=== PATIENT | male | born 1985 | race Caucasian/White ===

== ENCOUNTER 2019-04-19 14:30 | Emergency (ER) | payer MEDICAID ==
[~2019-04-19] VITALS: Ht 182.9 cm; Wt 68.2 kg
[2019-04-19 16:04] LABS: URINE AMPHETAMINE SCREEN NEGATIVE (Neg); URINE BARBITUATE SCREEN NEGATIVE (Neg); URINE BENZODIAZEPINES SCREEN NEGATIVE (Neg); URINE CANNABINOID SCREEN POSITIVE (Neg); URINE COCAINE SCREEN NEGATIVE (Neg); URINE METHADONE SCREEN NEGATIVE (Neg); URINE OPIATE SCREEN NEGATIVE (Neg); URINE PHENCYCLIDINE SCREEN NEGATIVE (Neg)
[2019-04-19 16:19] LABS: BASOPHILS % (AUTO) 0.2 % (0-1); EOSINOPHILS % (AUTO) 0 % (0-6); HEMATOCRIT 46.2 % (42.0-52.0); HEMOGLOBIN 15.7 g/dl (14.0-17.9); LYMPHOCYTES % (AUTO) 12.3 % (21-51); MEAN CORPUSCULAR HGB CONC 33.9 g/dL (33.0-36.5); MEAN CORPUSCULAR VOLUME 94.4 FL (78-98); MEAN PLATELET VOLUME 10.1 FL (7.4-10.4); MONOCYTES # (AUTO) 1.1 X10'3 (0-0.9); NEUTROPHILS # (AUTO) 13.1 X10'3 (1.8-7.7); NEUTROPHILS % (AUTO) 80.5 % (42-75); PLATELET COUNT 189 X10'3 (140-440); RED BLOOD COUNT 4.89 X10'6 (4.70-6.10); RED CELL DISTRIBUTION WIDTH 14.1 % (11.5-14.5); WHITE BLOOD COUNT 16.3 X10'3 (4.5-11.0)
[2019-04-19 16:31] LABS: ALANINE AMINOTRANSFERASE 24 U/L (12-78); ALBUMIN 4.3 G/DL (3.4-5.0); ALBUMIN/GLOBULIN RATIO 1.5 (1.1-1.5); ALKALINE PHOSPHATASE 35 IU/L (46-116); ANION GAP 9 (8-16); ASPARTATE AMINO TRANSFERASE 22 U/L (10-37); BILIRUBIN,TOTAL 0.8 MG/DL (0.1-1.0); BLOOD UREA NITROGEN 20 MG/DL (7-18); CALCIUM 9.2 MG/DL (8.5-10.1); CHLORIDE 102 MMOL/L (99-107); ETHANOL < 0.010 GM/DL (0.0-0.010); GLUCOSE 74 MG/DL (70-104); POTASSIUM 4.1 MMOL/L (3.5-5.1); SODIUM 139 MMOL/L (135-145); TOTAL CARBON DIOXIDE 27.8 MMOL/L (24-32); TOTAL PROTEIN 7.2 G/DL (6.4-8.2); eGFR 85 ML/MIN
[2019-04-19 16:55] LABS: CLARITY,URINE SLIGHTLY CLOUDY (Clear); GLUCOSE, URINE NEGATIVE (Neg); KETONES,URINE >=80 mg/dl (Neg); LEUKOCYTE ESTERASE ,URINE NEGATIVE (Neg); NITRITES, URINE NEGATIVE (Neg); OCCULT BLOOD,URINE TRACE-INTACT (Neg); PROTEIN,URINE 30 mg/dl (Neg)
[2019-04-19 16:58] LABS: COLOR,URINE DARK YELLOW (Yellow); UA COLLECTION TYPE CLN CATCH MIDSTREAM
[2019-04-19 17:01] LABS: AMORPHOUS URATES 1+; BACTERIA,URINE FEW /HPF (Neg); COARSE GRANULAR CAST 0-3 /LPF (NEGATIVE); MUCUS STRANDS MANY /LPF (Neg); RBC,URINE 0-2 /HPF (0-2); SQUAMOUS EPITHELIAL CELL,UR FEW /LPF (FEW); WBC,URINE 0-4 /HPF (0-4)
--- NOTE | 2019-04-19 17:12 | NUR ---
Pt currently resting with in bed with mother sitting at bedside. Pt states he is not suicidal or homicidal and denies AH or VH. Pt updated on plan of care and denies needs at present time.
--- NOTE | 2019-04-19 18:33 | NUR ---
Assumed care of patient, pt. sitting up in bed eating dinner at this time. Appears calm and cooperative, mother is at bedside.
--- NOTE | 2019-04-19 18:34 | NUR ---
Note justa in EDM - 04/19/19 at 1854 by BLAS Assumed care of patient, pt. sitting up in bed eating dinner at this time. He appears calm and cooperative.
--- NOTE | 2019-04-19 19:30 | NUR ---
Completed 1:1 at bedside with patient's mother present per his consent, pt. remains calm and cooperative with assessment. He reports S/I over the past few days with no plan. However, per pt's mother, he has threatened suicide attempts in the past with a plan to cut himself with a knife or inhale car exhast, pt. states, "I only want to get my kids back." He reports that his kids are currently with his fiancee staying with her family. Pt. is currently denying any S/I or any A/V/SWEENEY, however he does make paranoid delusional statements. He reports feeling like others want to "Frame him for the Hernán[place] Fire," although he is aware that he did not start it. He also feels like others are trying to poision him (with food and medications) and because of this he is non-medicaton compliant. Pt's thought process is circumstantial with flight of ideas at times, however he is redirectible. He reports that he is currently homeless and would like help getting his life back on track. Pt. is also concerned regarding the confidentiality of his medical record, he states, I dont want my kids to see it. This entry writer assured him that all information will remain confidential, however it will be documented in order to assist in effectively treating him, pt. reported understanding.
--- NOTE | 2019-04-19 20:38 | NUR ---
Pt. reuesting to go outside and smoke at this time, offered to obtain order for nicotine patch or lozenge, pt. refuses. Also refuses any anxiolytic, will continue to monitor.
[2019-04-19] MEDS ORDERED: hydrOXYzine 25 MG tablet PO ONE (21:30)
--- NOTE | 2019-04-19 22:01 | NUR ---
Obtained one-tme order for Atrax r/t pt. report of increasing anxiety and insomnia r/t environmental overstimulation. Also, obtained pictures and applied ABT ointment per order from Dr. Rabago of abraisions present on pt. bilateral knees, wrists, and top of feet. Pt. states, "It happended when I got drug by the police, I was not in my right mind." Pt. reports content, will continue to monitor.
--- NOTE | 2019-04-19 22:30 | NUR ---
Pt. appears to be resting comfortably at this time, laying in bed with eyes closed, rr even and unlabored. Will continue to monitor.
--- NOTE | 2019-04-20 00:35 | NUR ---
Pt. continues to sleep at this time, laying on back with HOB elevated, rr even and unlabored. Will continue to monitor.
[2019-04-20] MEDS ORDERED: NO HOME MEDS (00:46)
--- NOTE | 2019-04-20 02:33 | NUR ---
Pt. sleeping laying on his rt. side at this time, he will occassionally awake and make body adjustments, and then returns back to sleep, will continue to monitor.
--- NOTE | 2019-04-20 04:33 | NUR ---
Pt. laying on his back with his eyes closed at this time after adjusting his bed for comfort, rr even and unlabored.
--- NOTE | 2019-04-20 05:17 | NUR ---
Pt. awakened and c/o a headache r/t feeling hungry and cravings to smoke. Pt. reports he smokes 1 pack a day. Snack provided and obtained order for Nicotine Patch.
[2019-04-20] MEDS ORDERED: nicotine 21mg patch - 24 hr TD ONE (05:20)
--- NOTE | 2019-04-20 05:46 | NUR ---
Pt. visibly anxious, pacing, repeatedly asking staff when [facility] will arrive to talk to him. Pt. states, "I just feel caged in." He refuses the need for an anxyolitic at this time, and is able to be redirected back to his bed. Will continue to monitor.
--- NOTE | 2019-04-20 06:27 | NUR ---
Pt. refusing to put clothes on, states, "I want to go to a window to see my son." Staff attempted to re-orient to reality, however pt. continued to refuse to put clothes on and lay flat in bed, he started reciting the lord's prayer. Assisted by two staff members to put clothes on while security stood by. Will continue to monitor.
[2019-04-20] MEDS ORDERED: LORazepam 2 mg/ml vial IM ONE ×2 (06:30→06:50)
--- NOTE | 2019-04-20 06:30 | NUR ---
Patient refusing to get dressed, keeps trying to leave unit. Patient keeps reciting the Lord's Sebastian out Loud and is loudy trying to talk to neighbor. Given 2mg of Ativan.
--- NOTE | 2019-04-20 06:32 | NUR ---
ELOPEMENT BAND PLACED ON PTS LEFT WRIST.
--- NOTE | 2019-04-20 06:51 | NUR ---
Gave 2mg At[address] per Dr Calvo instead of 1mg
[2019-04-20] MEDS ORDERED: diphenhydrAMINE 50 mg/ml inj IM ONE (07:00)
[2019-04-20] MEDS ORDERED: haloperidol lactate 5mg/ml inj IM ONE (07:00)
--- NOTE | 2019-04-20 07:00 | NUR ---
Still trying to leave unit and loudly talking to neighbor. Dr Calvo ordered 50mg benadryl IM and Haldol 10mg IM.
--- NOTE | 2019-04-20 07:06 | NUR ---
PT CONTINUES TO TAKE OFF HIS SCRUBS, PT EDUCATED ON UNIT POLICIES, PT REFUSES TO WEAR SCRUBS. SECURITY CALLED. EDNV ORDERED MEDS, MEDS ADMINISTERED. PT IS HYPER ANABAPTISM AND CONTINUES TO REPEAT THE SAME PRAYER LOUDLY. PT STILL REFUSES TO WEAR SCRUBS. SECURITY AND NURSE AT BEDSIDE. PT KEEPS CALLING OUT "GAURAV, I LOVE YOU BROTHER" TO THE BED NEXT TO HIM (NO PT ON UNIT WITH THAT NAME). WILL CONTINES TO REDIRECT AND MONITOR THE PT.
--- NOTE | 2019-04-20 07:15 | NUR ---
Dr Calvo said if patient is still trying to leave the unit in 15minutes to try Geodon IM.
--- NOTE | 2019-04-20 07:17 | NUR ---
PT HAS MADE HIS 4TH ATTEMPT TO LEAVE THE UNIT, SECURITY PLACED PT BACK IN BED. REQUEST FOR SOFT RESTRAINTS DENIED BY EDMD, EDMD STATES "WAIT 10-15 MINUTES FOR THE MEDS, IF THAT DOESN'T WORK WE CAN GIVE GEODON". SECURITY AT BEDSIDE, CN AWARE. WILL CONTINUE TO MONITOR.
--- NOTE | 2019-04-20 07:22 | NUR ---
Patient is no longer trying to leave unit is reciting prayers out loud or tyring to talk to his neighbor. Patient is lying down in bed and appears to be asleep.
--- NOTE | 2019-04-20 08:00 | NUR ---
Patient is sleeping
--- NOTE | 2019-04-20 09:00 | NUR ---
Patient is sleeping
--- NOTE | 2019-04-20 18:38 | NUR ---
Pt's mom at bedside pt up and down coming to nurses station getting water from sink.
[2019-04-20] MEDS ORDERED: OLANZapine 2.5MG tablet PO ONE (20:00)
[2019-04-20] MEDS ORDERED: OLANZapine **IM** 10 mg inj. IM ONE (20:05)
--- NOTE | 2019-04-20 20:41 | NUR ---
Pt is currently quietly resting in bed in 4 point restraints applied by security. Pt behavior began to escalate around 1944. Pt attempted to leave unit rediricted by staff. Security called for standby. Pt offered PO Zyprexa he refused. Order for IM Zyprexa obtained. While this RN in med room preparing injection per security pt lunged at security and tried to strike them. Security applied restraints. Pt given IM Zyprexa at 20:20.
--- NOTE | 2019-04-20 22:59 | NUR ---
2109 Restraints removed. Pt slept for about an hour up to nurses station requesting to see his Dr. Pt made several trips to Nurses station. Returned to bed removed his scrubs is lying in bed covered by a sheet at this time.
--- NOTE | 2019-04-21 00:16 | NUR ---
Pt sleeping resp even and unlabored.
--- NOTE | 2019-04-21 01:50 | NUR ---
Pt sleeping resp even and unlabored.
--- NOTE | 2019-04-21 02:52 | NUR ---
Pt up pacing on unit.
--- NOTE | 2019-04-21 04:26 | NUR ---
Pt has been in bed asleep
[2019-04-21] MEDS ORDERED: LORazepam 1 MG tablet PO PRN (05:30)
--- NOTE | 2019-04-21 06:30 | NUR ---
Pt awake, pacing.
--- NOTE | 2019-04-21 07:00 | NUR ---
Pt requested a Bible, provided him with a [place] New Testament Book of Psalms which was the only one we could find in the hospital. Pt insistent that he needs "A Holy Bible" and he thought that we had to provide him with one.
--- NOTE | 2019-04-21 07:15 | NUR ---
Pt removed his shirt, instructed to put it back on. Pt declined, he laid down in the bed, covered himself with a sheet and removed his pants as well.
--- NOTE | 2019-04-21 08:15 | NUR ---
Pt was told that if he wanted to eat breakfast, he would have to put his clothes back on. Pt put his scrubs back on .
--- NOTE | 2019-04-21 10:15 | NUR ---
Pt received a phone call from his deya.
--- NOTE | 2019-04-21 11:24 | NUR ---
Pt is c/o floaters in his eyes which he believes is because of the medication he was given here. He wanted to know the name of any med he had here and wanted a print out on the medication. Printed out information on Zyprexa.
--- NOTE | 2019-04-21 11:47 | NUR ---
Pt is wanting his doctors name to be put in his chart. He states he sees Tia at [facility].
--- NOTE | 2019-04-21 11:52 | NUR ---
Pt requested another pair of socks. PCT stated she just gave him a new pair an hour ago. Pt replied, "yeah but they're already disgusting." Pt threw his socks in the garbage and then went in to the bathroom.
--- NOTE | 2019-04-21 12:16 | NUR ---
Pt approached this RN to ask what the plan was, the big picture. Discussed the 5150 hold and that he is waiting to be placed somewhere where he can get some help. Pt indicated that his brain couldn't comprehend what was going on. Asked pt if he remembered why he was here. He did not. Attempted reality orientation which was partially effective. Pt stated that he doesn't like the way he feels, that it's uncomfortable. Reassured him that this was why he is here and we are trying to get him placed somewhere where he can see a psychiatrist and get him on some meds that will help him. Pt expressed understanding. Offered pt something to read, or drawing supplies. Pt stated that he likes to barnard and fish. Pt asked, "can I take off my pants now?" Reinforced that the rule here is that clothing needs to stay on. Pt is currently walking back and forth slowly in front of the nurses' station with another male pt conversing.
--- NOTE | 2019-04-21 13:36 | NUR ---
Pt is lying in bed on his back, appears to be sleeping.
--- NOTE | 2019-04-21 13:51 | NUR ---
Pt refused lunch.
--- NOTE | 2019-04-21 14:25 | NUR ---
Pt pacing, stopped at nurses' station and asked, "How long 'til this really kicks in?" Asked pt until what really kicks in. Pt looked at this RN but did not answer then stated, "I kind of like it."
--- NOTE | 2019-04-21 14:54 | NUR ---
Pt has been accepted upstairs at [facility] but will likely will not be able to be transferred upstairs until after shift change.
--- NOTE | 2019-04-21 15:00 | NUR ---
Pt approached the nurses' station again stated that he doesn't like the way he is feeling. Pt looked like he was on the verge of tears. Pt stated, "I don't wan't to hurt anybody." Positive reinforcement provided. Pt remained calm and appreciative.
[2019-04-21 17:46] VITALS: BP 156/90
== END 2019-04-21 21:22 ==
LOC: ER 14:31
DX: S80.211A Abrasion, right knee, initial encounter (principal); S90.812A Abrasion, left foot, initial encounter; S90.811A Abrasion, right foot, initial encounter; X58.XXXA Exposure to other specified factors, initial encounter; Y93.89 Activity, other specified; Y92.89 Other specified places as the place of occurrence of the external cause; Y99.8 Other external cause status
CPT/HCPCS: 36415; 80053; 80305; 80320; 81001; 84443; 85025; 96372; 99285; J1200; J1630; J2060; J3490; Z7610

== ENCOUNTER 2019-04-21 20:31 | Inpatient (IN) | payer MEDICAID ==
[~2019-04-21] VITALS: Ht 182.9 cm; Wt 66.4 kg
[~2019-04-21 20:31] MED LIST: NO HOME MEDS
[2019-04-21] MEDS ORDERED: acetaminophen 325mg tablet PO PRN ×2 (21:30)
[2019-04-21] MEDS ORDERED: mag hydrox/Alum hydrox/simeth 30ml oral suspension PO PRN (21:30)
[2019-04-21] MEDS ORDERED: loperamide 2mg capsule PO PRN (21:30)
[2019-04-21] MEDS ORDERED: traZODone 50mg tablet PO PRN (21:30)
[2019-04-21] MEDS ORDERED: hydrOXYzine 25 MG tablet PO PRN (21:30)
[2019-04-21] MEDS ORDERED: zolpidem 5mg tablet PO PRN (21:30)
[2019-04-21] MEDS ORDERED: NICOTINE POLACRILEX 2 MG LOZENGE BC PRN (21:30)
[2019-04-21] MEDS ORDERED: magnesium hydroxide 30ml (MOM) UD suspension PO PRN (21:30)
--- NOTE | 2019-04-21 23:38 | NUR ---
Admit Note: Pt arrived on the unit at 2140 accompanied by javier Miranda. Pt was brought up from ED in a wheelchair and was scanned prior to arrival for contraband. Pt was oriented to unit and allowed to shower after a 2 RN skin assessment was performed. Pt was placed on a 5150 for grave disability by rpd after he was found in a latter-day naked. Pt was physically removed from latter-day by police and then brought to [facility] ED. Pt was calm and cooperative for intake assessment and refused prn medications.
[2019-04-22 08:00] VITALS: BP 116/92
--- NOTE | 2019-04-22 11:40 | NUR ---
PSYCHOSOCIAL ASSESSMENT Dylon is a 34 y/o male who was placed on 5150 for danger to others and grave disability. His mother had taken him to [facility] on 04/18/19 and was placed on a 5150. He AWOLD'd going to [facility] looking for his child and disrobed on his way back to the ED. His mother reported Ct had been threatening to kill himself becroxanaue he had not seen his children. He had also not been sleeping or eating. He had been very paranoid and would not allow his family to leave the house. [facility] and [facility] were called and he was arrested (unclear why). Once he was released from detention he was found at a [employer] naked. He reported he was looking for his mom. He was then brought to [facility] on a 5150. Mn reported he had been feeling paranoid for about the last week.He stated, "I decided to start fasting" and admitted he did this due to paranoia about his food being poisoned. He reported a similar episode March 2018 in which he was hospitalized at [facility]. He reported he followed up with [facility], Dr Mendez, and also with [facility]. He reported he had been given Invega Sustenna at [facility] and has not been taking medications recently. AGUILA Guevara Addendum: 04/22/19 at 1142 by Mary Gibbons SS Amended: Links added.
--- NOTE | 2019-04-22 13:40 | NUR ---
Dylon asked for automobile and property underwriter's assistance with completing a letter to request a State Fair Hearing. He reported he wants his life back. He presented as quite paranoid and would not discuss what he is fearful of. Lunch had just arrived and automobile and property underwriter suggested he eat his lunch and he stated he was afraid to because he is afraid it is poisoned. Explained that we are here to help him and that this is a safe place. He was tearful at one point during the interaction. He asked to see a doctor and stated he wants to know why he is afraid and anxious and why he has lost weight. Informed him he will see a doctor today. Transmission Rebuilder attempted to reach his mother, Chelsea, and the phone number that is listed for her does not work (ph# [phone]). Attempted to reach his girlfriend, Rossy (ph# [phone]), and her voice mail was not set up. AGUILA Guevara
--- NOTE | 2019-04-22 17:33 | NUR ---
Nursing Progress Note: Legal hold:5150 Client on involuntary status for DTS, Report received from RN with use of SBAR. Why are they here: Pt was placed on a 5150 for grave disability by rpd after he was found in a sikh naked. Pt was physically removed from sikh by police and then brought to [facility] ED. Assessment: What has happened this shift: Received Pt in bed sleeping w/o distress at beginning of shift. Pt awoke and spent time in Recreation room by the window waiting for the sun to rise. 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 Pleasant and cooperative in conversation, yet guarded. Ate a little of breakfast and lunch, but said he was fasting prior to today. He appears paranoid of staff and also of hospital food. He is concerned about his boys, as their mother is wary of him being around them. He minimizes bizzare behaviors and the effects of 20 years of daily marajuana use. Does not want medications. Met with Shamar Mcgee And stated the same and no meds ordered at this time. Visible on unit most of day with blanket wrapped around him as he reports feeling cold. S/I, H/I: Denies A/VH: Denies Sleep: None on this shift ADL's: Independent Group attendance: Yes Were meds taken: No meds ordered Any med S/E: No Mental Status Exam Appearance: Moderately disheveled. Eye contact: Good Behavior: Cooperative Speech: Clear Mood:Anxious Affect: Flat Thought process: Clear, avoidant of certain issues Thought Content: Concerned about his boys Cognition: Intact Insight:Poor. Judgment:Poor. Interventions PRN's used: None Therapeutic interventions: 1:1 assessment, active listening, therapeutic conversation, medication administration/education/monitoring, encouragement to attend groups, encouragement of PO food and fluids, reality orientation, limit setting, monitoring of behaviors and need for intervention, elopement prevention, Q 15 min safety checks. Restraints/seclusion/emergency medication: None Justification of Continued Inpatient Treatment: Pt continues to endorse SI with a plan.Patient needs further medication adjustment and monitoring in a safe therapeutic environment to prevent self harm or readmission. High risk for suicide or serious self injury.
[2019-04-22 19:48] VITALS: BP 142/87
--- NOTE | 2019-04-22 23:53 | NUR ---
Nursing Progress Note: Legal hold:5150 Client on involuntary status for DTS, Report received from Nery PIERRE with use of SBAR. Why are they here: Pt was placed on a 5150 for grave disability by rpd after he was found in a [place]ahai naked. Pt was physically removed from bahai by police and then brought to [facility] ED. Assessment: What has happened this shift: Pt was in rec room at change of shift, pt denies s/i, denies a/vh. Pt was pleasant and came to say hello to this pattern chart writer at change of shift. Pt became irritable after conversation with his mother navid and asked to not let her calls through to him. He states "You and I both know shes the problem, she's always been the problem and shes the reason I'm here." Pt is very guarded and careful answering questions. Pt reports not eating dinner and states he is fasting because its the new year. Pt is paranoid and refusing any type of medication. He went to bed shortly after change of shift then woke around 10pm asking for a nicotine patch. Explained to pt that we can order a nicotine patch for the day time and offered nicotine lozenge and patient refused lozenge, when I said I'd order a patch he states never mind and refused to talk any further. S/I, H/I: Denies A/VH: Denies Sleep: None on this shift ADL's: Independent Group attendance: Yes Were meds taken: No meds ordered Any med S/E: No Mental Status Exam Appearance: unkempt, wearing green scubs Eye contact: Good Behavior: Cooperative, agitated, Speech: Clear Mood:Anxious Affect: incongruent, laughs when he is agitated Thought process: linear, guarded, paranoid Thought Content: wants mother taken off off of his paperwork, doesnt want to talk to her and wants no info given to her Cognition: Intact Insight:Poor. Judgment:Poor. Interventions PRN's used: None Therapeutic interventions: 1:1 assessment, active listening, therapeutic conversation, medication administration/education/monitoring, encouragement to attend groups, encouragement of PO food and fluids, reality orientation, limit setting, monitoring of behaviors and need for intervention, elopement prevention, Q 15 min safety checks. Restraints/seclusion/emergency medication: None Justification of Continued Inpatient Treatment: Pt continues to endorse SI with a plan.Patient needs further medication adjustment and monitoring in a safe therapeutic environment to prevent self harm or readmission. High risk for suicide or serious self injury. Addendum: 04/23/19 at 0250 by Kemi Whyte RN Pt refused to take any medications, approx 0230 he approached nurses station and requested medication for sleep and chose to use atarax
[2019-04-23 07:05] LABS: CHOL/HDL RATIO 3.4 (0.00-4.99); CHOLESTEROL 145 MG/DL (0-200); HDL CHOLESTEROL 43 MG/DL (35-60); LDL CHOLESTEROL 95 MG/DL (50-100); TRIGLYCERIDES 48 MG/DL (20-135)
[2019-04-23 07:31] VITALS: BP 119/87
[2019-04-23] MEDS ORDERED: haloperidol lactate 5mg/ml inj IM PRN (13:45)
[2019-04-23] MEDS ORDERED: LORazepam 2 mg/ml vial IM PRN (13:45)
[2019-04-23] MEDS ORDERED: diphenhydrAMINE 50 mg/ml inj IM PRN (13:45)
--- NOTE | 2019-04-23 14:05 | NUR ---
Dylon continues to be quite paranoid and stated he is afraid to go to sleep and is afraid to eat. Encouraged him to take medications to help him get sleep and help with his anxiety. He admitted he is afraid and only wants to use tobacco and marijuana. He was pacing the halls and ad copy writer walked and talked with him. He stated he does not think his kids are his kids and that he is trapped in a rat cage. Attempted to re-assure Dylon that he is safe here. He only slept 2.5 hours last night. He eloped from the unit for a short period and was brought back. AGUILA Guevara
[2019-04-23] MEDS ORDERED: LORazepam 1 MG tablet PO PRN (14:40)
[2019-04-23] MEDS ORDERED: diphenhydrAMINE 25mg capsule PO PRN (14:40)
[2019-04-23] MEDS ORDERED: haloperidol 5mg tablet PO PRN (14:40)
--- NOTE | 2019-04-23 17:30 | NUR ---
Nursing Progress Note: Legal hold: 5150 Client on involuntary status for DTS, Report received from Brenda PIERRE with use of SBAR. Why are they here: Pt was placed on a 5150 for grave disability by rpd after he was found in a yarsanism naked. Pt was physically removed from yarsanism by police and then brought to [facility] ED. Pt. has previous psych hospitalization a year ago. Assessment: What has happened this shift: Pt. awake at start of shift. Pt. friendly and approaced this RN with greeting. RN introduced self. Pt. ate some of his breakfast. Pt. sitting by window and looking outside. Pt. refused 1:1 assessment. Pt. eloped in afternoon and was found in HR and security was called. Pt. was brought back to unit without resistance. Pt. checking doors and RN received PRN medication orders. Pt. refused PRN medications. RN informed pt. that if he continued to check doors he would receive medication. Pt. asked RN if he could talk. During conversation pt. presents withi d/o, tangential thought process. Pt. states, "I think I know what's going on. I don't know my dad. I never met my dad. I think there are 6 men that could be my dad. My mom spoke with me about that... I just want to see my family... The cannabis is my medication... I Just want to know where my brother is (Crying)... Can you please tell me where he is... My mom brought me to yarsanism all my life, and I'm able to see things from both sides... It's all about love in this life (crying)... I am more patriatoic now, I know what Thanksgiving is about now... I don't get REM sleep because I get so much anxiety, my dreams are crazy and I wake up and got to go to work.... Government and you guys can read every single thought that I have... Do you guys know who my dad is?". Pt believes the food is being poisoned. S/I, H/I: Denies A/VH: Denies Sleep: Pt. did not nap on day shift. ADL's: Independent Group attendance: Yes Were meds taken: Pt. refused prn medications. Any med S/E: No Mental Status Exam Appearance: Disheveled, wearing [address] street clothes and cap. Eye contact: Good Behavior: Resistive to care. Paranoid Speech: Clear Mood: Anxious, depressed Affect: Congruent with mood. Thought process: D/O, tangential, paranoid. Thought Content: Delusional, paranoid thoughts, see note for details. Cognition: A&O to person and place. Insight: Poor. Judgment: Poor. Interventions PRN's used: Refused Therapeutic interventions: 1:1 assessment, active listening, therapeutic conversation, medication administration/education/monitoring, encouragement to attend groups, encouragement of PO food and fluids, reality orientation, limit setting, monitoring of behaviors and need for intervention, elopement prevention, Q 15 min safety checks. Restraints/seclusion/emergency medication: None Justification of Continued Inpatient Treatment: Pt. attempted to elope from the unit. Pt. refusing PRN medication. Pt. not eating because feels the food is poisoned. Patient needs further medication adjustment and monitoring in a safe therapeutic environment to prevent self harm or readmission.
[2019-04-23 20:00] VITALS: BP 140/98
--- NOTE | 2019-04-23 22:44 | NUR ---
Nursing Progress Note: Legal hold: 5150 Client on involuntary status for DTS, Report received from Nery PIERRE with use of SBAR. Why are they here: Pt was placed on a 5150 for grave disability by rpd after he was found in a jew naked. Pt was physically removed from jew by police and then brought to [facility] ED. Pt. has previous psych hospitalization a year ago. Assessment: What has happened this shift: Pt was standing in the hallway near the front door at change of shift. Pt was asked about his day and about leaving the floor and he denies this happened. Pt states "Aminata I know you, we both know whats going on here, I just need to get out of here." Pt was directed away from the door but returned to sit in a de la torre chair positioned near the door. Pts mother called and pt stated it was ok to speak with her. Pts mother reported that patient has been repeatedly calling her and they dont want excessive phone calls. Explained this to patient and he agreed he was calling too much and states he will stop calling her tonight and will call her tomorrow. Encouraged medications and patient refused. Pt is tangential making nonsensicle statements when he is trying to explain why he doesnt want medications. Demands that his mother take medicine first. Pt states "I need a group of people to sit down and talk with me about this." Explained that we can sit down and talk about it and he declined. Pt went to his room and napped for a couple of hours before coming out of his room and checking doors to leave. He tied a pillow to his head with his shirt and started making loud "siren" noises up and down the hallway after all the other patients went to bed. He was redirected to his bedroom and asked to be quiet as other patients are sleeping. He is in his room whistling and sitting next to the window with head phones on. S/I, H/I: Denies A/VH: Denies Sleep: short naps during the night ADL's: Independent Group attendance: no evening groups Were meds taken: Pt. refused any meds offered Any med S/E: No Mental Status Exam Appearance: Disheveled, wearing lester street clothes and beanie, refused shower Eye contact: Good Behavior: Resistive to care. Paranoid Speech: Clear Mood: Anxious, depressed Affect: Congruent with mood. Thought process: D/O, tangential, paranoid. Thought Content: Delusional, paranoid thoughts, Cognition: A&O to person and place. Insight: Poor. Judgment: Poor. Interventions PRN's used: Refused Therapeutic interventions: 1:1 assessment, active listening, therapeutic conversation, medication administration/education/monitoring, encouragement to attend groups, encouragement of PO food and fluids, reality orientation, limit setting, monitoring of behaviors and need for intervention, elopement prevention, Q 15 min safety checks. Restraints/seclusion/emergency medication: None Justification of Continued Inpatient Treatment: Pt. attempted to elope from the unit. Pt. refusing PRN medication. Pt. not eating because feels the food is poisoned. Patient needs further medication adjustment and monitoring in a safe therapeutic environment to prevent self harm or readmission.
[2019-04-24 07:32] VITALS: BP 137/83
[2019-04-24] MEDS: LORazepam 1 MG tablet PO PRN ×2 (12:06→21:00)
--- NOTE | 2019-04-24 17:25 | NUR ---
Nursing Progress Note: Legal hold: 5150 Client on involuntary status for DTS, Report received from Brenda PIERRE with use of SBAR. Why are they here: Pt was placed on a 5150 for grave disability by rpd after he was found in a [facility] naked. Pt was physically removed from ep[facility] by police and then brought to [facility] ED. Pt. has previous psych hospitalization a year ago. Assessment: What has happened this shift: Patient awake at change of shift. Pt. Presents as anxious and labile. Pt. States that he wants someone to talk to and help sort things out, that he would like medication education. Attempted 1:1 with patient, but patient states that he does not want to take medications and refuses p.o. Ativan. Patient had a visitor and states that it is the [employer] of his moms [employer]. Pt. Then became tearful, I just want help, I dont know what is up and what is down, Im hot and then Im cold. Patient was more open to taking medications, going to groups, and learning coping mechanisms. Pt. Is in denial of any wrong doing in the episcopal, and blames police for dragging him out of episcopal. Patient on two occasions was checking lock on front door, increased monitoring during these periods of time. Patient denied checking door right after he had tried to open front door. Patient did take Ativan 1 mg p.o. With good effect. S/I, H/I: Denies A/VH: Denies Sleep: Awake on days. ADL's: Independent Group attendance: Yes Were meds taken: prn Ativan. Any med S/E: No Mental Status Exam Appearance: Clean and neat in street clothes. Eye contact: Good Behavior: Resistive to care. Paranoid Speech: Pressured, rapid speech when anxious. Mood: Anxious, labile. Affect: Congruent with mood. Thought process: disorganized, tangential, paranoid. Thought Content: Separation of girlfriend, not being able to see children,. Cognition: A&O to person and place. Insight: Impaired. Judgment: Impaired. Interventions PRN's used: Ativan Therapeutic interventions: 1:1 assessment, active listening, therapeutic conversation, medication administration/education/monitoring, encouragement to attend groups, encouragement of PO food and fluids, reality orientation, limit setting, monitoring of behaviors and need for intervention, elopement prevention, Q 15 min safety checks. Restraints/seclusion/emergency medication: None Justification of Continued Inpatient Treatment: Pt. attempted to elope from the unit. Pt. refusing PRN medication. Pt. not eating because feels the food is poisoned. Patient needs further medication adjustment and monitoring in a safe therapeutic environment to prevent self harm or readmission.
[2019-04-24 20:00] VITALS: BP 135/84
[2019-04-24] MEDS: lithium carbonate 150mg capsule PO SCH (21:19)
--- NOTE | 2019-04-25 05:07 | NUR ---
Nursing Progress Note: Legal hold: 5250 Client on involuntary status for DTS, Report received from Oneyda PIERRE with use of SBAR. Why are they here: Pt was placed on a 5150 for grave disability by rpd after he was found in a budd[facility] naked. Pt was physically removed from buddhist by police and then brought to [facility] ED. Pt. has previous psych hospitalization a year ago. Assessment: What has happened this shift: Pt pleasant and talkative at the beginning of the shift. He talks about hiking in the [place] and camping. He requests ativan at bedtime because h feels like it helped him earlier in the day. "I feel much better right now, I know I wasn't thinking right I was manic, I am bipolar." Pt takes the ativan and also takes the 900mg of lithium that is scheduled. Pt was hesitant to take the lithium but after reassurance he said, "If the doctors want it that way, I guess I will try it, there's no harm in that." Pt goes to bed but wakes up briefly after and goes to the front door of the unit and tries to open it. Pt appears confused and makes a statement about burning houses and asks if he can go to his garage. Pt redirected and given headphones. PT offered ambien, but he declined. Pt continues to wander around his room listenin to headphones or occasionally walk the hallway. "I get up early, then I just need to figure out what to do with myself." S/I, H/I: Denies A/VH: Denies Sleep: short naps during the night ADL's: Independent Group attendance: no evening groups Were meds taken: yes Any med S/E: No Mental Status Exam Appearance: Disheveled, wearing lester street clothes and beanie, refused shower Eye contact: Good Behavior: calm and pleasant to confused Speech: Clear Mood: reasonable to unreasonable Affect: Congruent with mood. Thought process: D/O, tangential, paranoid. Thought Content: Delusional, paranoid thoughts, Cognition: A&O to person and place. Insight: Poor. Judgment: Poor. Interventions PRN's used: ativan Therapeutic interventions: 1:1 assessment, active listening, therapeutic conversation, medication administration/education/monitoring, encouragement to attend groups, encouragement of PO food and fluids, reality orientation, limit setting, monitoring of behaviors and need for intervention, elopement prevention, Q 15 min safety checks. Restraints/seclusion/emergency medication: None Justification of Continued Inpatient Treatment: Pt. attempted to elope from the unit. Pt. refusing PRN medication. Pt. not eating because feels the food is poisoned. Patient needs further medication adjustment and monitoring in a safe therapeutic environment to prevent self harm or readmission.
[2019-04-25] MEDS ORDERED: ARIPIPRAZOLE 10 MG TABLET PO SCH (08:00)
[2019-04-25 08:30] VITALS: BP 120/83
--- NOTE | 2019-04-25 08:46 | NUR ---
Spoke to Dylon's , Rossy (ph# [phone]), who reported she is going to visit today, however, is hesitant because Dylon wants her to help him leave and she is aware that he is on a 5250. Dylon refused his medication this morning. He continues to pace the halls and ask numerous questions regarding his ability to leave the unit. He told comic book writer he is "starving", however, did not want to eat breakfast, "I'll eat when I get out of here". He stated he is going to represent himself at his 5250 hearing and seemed to have little understanding and insight as to why he is here. He continues to be very paranoid and confused. AGUILA Guevara
--- NOTE | 2019-04-25 14:37 | NUR ---
Initial: Pt admit on 5150 for psychosis. PO 100% regular diet meeting needs. LBM 04/24. No nutrition concerns at this time. Will continue to monitor. Rec: 1. continue regular diet 2. bowel care as needed 3. wt per rx Addendum: 04/25/19 at [address] Amended: Links added.
--- NOTE | 2019-04-25 16:29 | NUR ---
Nursing Progress Note: Legal hold: 5150 Client on involuntary status for DTS, Report received from Brenda PIERRE with use of SBAR. Why are they here: Pt was placed on a 5150 for grave disability by rpd after he was found in a [facility] naked. Pt was physically removed from [facility] by police and then brought to [facility] ED. Pt. has previous psych hospitalization a year ago. Assessment: What has happened this shift: Patient was awake and hypervigilant. RN asked how patient slept and patient stated great! RN said to patient "But you only slept 3 hours." Patient states "that's by your clock!". Patient refused to eat breakfast because he was afraid it was poisoned by staff. Later in the day patient talking to staff and tearful but also with some delusional thinking. Patient did eat some of his lunch. Patient went to court and lost his hearing so his [id number] S/I, H/I: Denies A/VH: Denies Sleep: Pt. did not nap on day shift. ADL's: Independent Group attendance: Yes Were meds taken: Pt. refused prn medications. Any med S/E: No Mental Status Exam Appearance: Disheveled, wearing lester street clothes and cap. Eye contact: Good Behavior: Resistive to care. Paranoid Speech: Clear Mood: Anxious, depressed Affect: Congruent with mood. Thought process: D/O, tangential, paranoid. Thought Content: Delusional, paranoid thoughts, see note for details. Cognition: A&O to person and place. Insight: Poor. Judgment: Poor. Interventions PRN's used: Refused Therapeutic interventions: 1:1 assessment, active listening, therapeutic conversation, medication administration/education/monitoring, encouragement to attend groups, encouragement of PO food and fluids, reality orientation, limit setting, monitoring of behaviors and need for intervention, elopement prevention, Q 15 min safety checks. Restraints/seclusion/emergency medication: None Justification of Continued Inpatient Treatment: Pt. attempted to elope from the unit. Pt. refusing PRN Addendum: 04/25/19 at 1655 by Kailee Ogden RN ...his 5250 stands. Patient was calm and sometimes tearful when speaking to RN. Patient refused his morning med (Abilify 10 mg). Stated he was doing fine. Patient did think he was getting out of here today.
[2019-04-25 19:22] VITALS: BP 126/84
[2019-04-25] MEDS: ARIPIPRAZOLE 10 MG TABLET PO SCH (20:00)
[2019-04-25] MEDS: lithium carbonate 150mg capsule PO SCH (21:00)
--- NOTE | 2019-04-25 23:28 | NUR ---
Nursing Progress Note: Legal hold: 5250 Client on involuntary status for DTS, Report received from ADELITA Tran with use of SBAR. Why are they here: Pt was placed on a 5150 for grave disability by rpd after he was found in a [facility] naked. Pt was physically removed from [facility]apt[facility] by police and then brought to [facility] ED. Pt. has previous psych hospitalization a year ago. Assessment: Pt was pacing the isles socializing appropriately with other patients during shift change. Came up to this grant writer to request information about the medications he was to take tonight be brought with his meds. Printed out all the information pt requested and answer any questions he had. Pt spend some time reading the information. Pt was cooperative during 1:1 physical assessment but after reading the material about the medications that were scheduled for him, he refused stating that he wanted to talk to his doctor prior to taking any of them. He had a lot of questions about side effects that he wanted to go over with his doctor. When explained to him that a psychiatrist would be seeing him tomorrow, he stated that he wanted to talk to his regular doctor. He states "I want to talk to my doctor about the side effects that I'm experiencing with these meds." When asked about what side effects he was having, he states, that its personal and that he was going to talk to his doctor about it. Later pt reports to another RN about experiencing tardive dyskinesia. However, this was not observed. Pt continues to be paranoid about his food, stating that it has too much salt. We talked about how he was fasting for about 7 days and ever since he was been losing weight. Pt remained in the TV room for some time. Pt requested water several times. This grant writer encouraged pt to try to get some sleep but he still remained in TV room for a while. S/I, H/I: Denies A/VH: Denies Sleep: Went to sleep pretty late, see sleep assessment for total hours. ADL's: Independent Group attendance: no groups during car shifter. Were meds taken: refused Any med S/E: No Mental Status Exam Appearance: appropriate, wearing sweats Eye contact: Good Behavior: calm and pleasant, paranoid, resistive to care Speech: Clear Mood: "good", labile Affect: congruent with mood Thought process: Linear Thought Content: Medications, talking to his doctors Cognition: A&O X2 Insight: Poor. Judgment: Poor. Interventions PRN's used: none Therapeutic interventions: 1:1 assessment, active listening, therapeutic conversation, medication administration/education/monitoring, encouragement to attend groups, encouragement of PO food and fluids, reality orientation, limit setting, monitoring of behaviors and need for intervention, elopement prevention, Q 15 min safety checks. Restraints/seclusion/emergency medication: None Justification of Continued Inpatient Treatment: Pt. attempted to elope from the unit. Pt. refusing PRN medication. Pt. not eating because feels the food is poisoned. Patient needs further medication adjustment and monitoring in a safe therapeutic environment to prevent self harm or readmission. Addendum: 04/26/19 at 0311 by Ashly Garcia RN Pt was up for most of the night. As reported by PCT that spoke to pt, he stated that he had already gotten enough sleep. He also apparently stated that we were trying to keep him from sleeping because he had good dreams. Pt also stripped down his bed.
[2019-04-26 07:25] VITALS: BP 132/84
[2019-04-26] MEDS: ARIPIPRAZOLE 10 MG TABLET PO SCH ×2 (08:00→20:00)
[2019-04-26 15:30] VITALS: BP 120/100
--- NOTE | 2019-04-26 16:19 | NUR ---
Nursing Progress Note: Legal hold: 5150 Client on involuntary status for DTS, Report received from Sally Edward RN with use of SBAR. Why are they here: Pt was placed on a 5150 for grave disability by rpd after he was found in a [employer] naked. Pt was physically removed from confucian[facility] by police and then brought to [facility] ED. Pt. has previous psych hospitalization a year ago. Assessment: What has happened this shift: Patient was up at change of shift and only slept an hour or 2 last night. Patient was happy, smiling and listening to music on head phones off and on today. Patient ate breakfast and lunch but refused his morning medication. Patient asking for pitcher after pitcher of water. RN checked on patient around 1405 and found patient coming out of his bathroom with head phones singing. RN went to documentation room and patient in the hallway close to the same room. RN heard something unusual and walked out the door. Patient found laying face down on the floor; Legs together with arms straight out like a cross. Patient was breathing and had a pulse. Patient was not responding. Patient was turned over on his back and vital signs were taken HR 119, RR 14, SPO2 96%, BP 120/100. Patient was carried to his bed by staff. Patient's eyes were open and patient appeared to be slightly resisting staff as patient was weight. Patient laid down in his bed. Patient closed his eyes and fell asleep. About 30 minutes later patient gets up and slams his door and slams his [id number] against the wall. Patient had urinated on himself and it awoke patient. Patient was uncooperative and security was at side. Patient was given 10 mg of Haldol, 50 of Benadryl and 2 mg of Ativan IM. Patient is sleeping comfortably. Patient is to be Riesed as soon as Dr Mccoy comes into the office. S/I, H/I: Denies A/VH: Denies Sleep: Pt s;e[t from about 1530 on today. ADL's: Independent Group attendance: No Were meds taken: No Any med S/E: No Mental Status Exam Appearance: Disheveled, wearing lester street clothes and cap. Eye contact: Good Behavior: Resistive to care. Paranoid Speech: Clear Mood: Anxious Affect: Congruent with mood. Thought process: tangential, paranoid. Thought Content: Delusional, paranoid Cognition: A&O to person and place. Insight: Poor. Judgment: Poor. Interventions PRN's used: Refused Therapeutic interventions: 1:1 assessment, active listening, therapeutic conversation, medication administration/education/monitoring, encouragement to attend groups, encouragement of PO food and fluids, reality orientation, limit setting, monitoring of behaviors and need for intervention, elopement prevention, Q 15 min safety checks. Restraints/seclusion/emergency medication: None Justification of Continued Inpatient Treatment: Pt. attempted to elope from the unit. Pt. refusing PRN
[2019-04-26 19:22] VITALS: BP 107/65
[2019-04-26] MEDS: lithium carbonate 150mg capsule PO SCH (21:00)
--- NOTE | 2019-04-27 01:18 | NUR ---
Nursing Progress Note: Legal hold: 5150 Client on involuntary status for DTS, Report received from ADELITA Tran with use of SBAR. Why are they here: Pt was placed on a 5150 for grave disability by rpd after he was found in a [employer] naked. Pt was physically removed from [facility] by police and then brought to [facility] ED. Pt. has previous psych hospitalization a year ago. Assessment: Pt was in his room resting during shift change. Later on patient came out into the nurse's room and appeared to be very sedated. When asked how he was doing, he would not answer and just doze off. This RN encouraged pt to return to his room where he could rest. He was observed a couple of times out of his room ambulated without any issues later on. Attempted to do physical assessment but patient's interaction was very minimal and did not answer to most of my questions. When asked if would take his HS medications, he states that he was not going to take them because he did not like the way they made him feel. This RN reminded pt that one of them he was going to start tonight for the very first time but he still refused. Pt denies S/I, V/H, A/H but states. He states "I don't think about self-harm but maybe other people. When asked who or why, pt did not respond anything. Pt remained in TV room sitting in the corner for some time before he decided to return to his room. S/I, H/I: Denies S/I but enforces passive H/I A/VH: Denies Sleep: Currently sleeping, see sleep assessment for total hours ADL's: Independent Group attendance: None during car shifter Were meds taken: No Any med S/E: No Mental Status Exam Appearance: Disheveled, wearing lester street clothes and cap, appears underweight Eye contact: Minimal Behavior: Resistive to care, sedated, guarded Speech: pressured, soft Mood: Depressed Affect: Fat Thought process: Tangential Thought Content: Feeling loopy, not wanting to take his meds Cognition: A&O to person and place. Insight: Poor. Judgment: Poor. Interventions PRN's used: Refused Therapeutic interventions: 1:1 assessment, active listening, therapeutic conversation, medication administration/education/monitoring, encouragement to attend groups, encouragement of PO food and fluids, reality orientation, limit setting, monitoring of behaviors and need for intervention, elopement prevention, Q 15 min safety checks. Restraints/seclusion/emergency medication: None Justification of Continued Inpatient Treatment: Pt. attempted to elope from the unit. Pt. refusing PRN
[2019-04-27 08:00] VITALS: BP 126/76
[2019-04-27] MEDS: ARIPIPRAZOLE 10 MG TABLET PO SCH ×2 (08:00→20:00)
--- NOTE | 2019-04-27 16:22 | NUR ---
NURSING PROGRESS NOTE Legal hold: 5150 Client on involuntary status for DTS Report received from Sally Edward RN with use of SBAR. Why are they here: Pt was placed on a 5150 for grave disability by rpd after he was found in a restorationist naked. Pt was physically removed from restorationist by police and then brought to [facility] ED. Pt. has previous psych hospitalization a year ago. Assessment: What has happened this shift: Up to breakfast, cooperative, calm. Depressed mood, constricted affect. Disorganized thoughts with paranoid delusions. Patient is asked if he knows where he is and why. He knows he is at [facility] and this is a behavioral health unit. He relates a disorganized sequence of events regarding how he came to be here and focused on being at the [employer] naked and was brought here by police, being at [facility] and looking for his children in labor and delivery, elopement was minimized, and did not seem to be able to keep straight the sequence of events. He is paranoid about his meds, has been given handouts, but won't take the medications unless he talks to the pharmacist and "not just a nurse", or speaks with the doctor again., Also paranoid about water sources, was explained we have filtered water, and even got patient bottled water, and stated he couldn't drink it because it was not from "a pure source." He wants to go get pure water from a stream in [facility] because, "that's where I'm from." Does not appear to be RIS. Denies hallucinations. Refused all meds. Did eat well. Otherwise compliant, polite and cooperative today. S/I, H/I: Denies A/VH: Denies Sleep: None ADL's: Independent Group attendance: No Were meds taken: No Any med S/E: No Mental Status Exam Appearance: slightly disheveled Eye contact: Good Behavior: paranoid Speech: Clear, soft Mood: depressed Affect: constricted Thought process: tangential Thought Content: Delusional, paranoid Cognition: Alert Insight: Poor. Judgment: Poor. Interventions PRN's used: None Therapeutic interventions: 1:1 assessment, active listening, therapeutic conversation, medication administration/education/monitoring, encouragement to attend groups, encouragement of PO food and fluids, reality orientation, limit setting, monitoring of behaviors and need for intervention, elopement prevention, Q 15 min safety checks. Restraints/seclusion/emergency medication: None Justification of Continued Inpatient Treatment: Pt. attempted to elope from the unit. Pt. refusing PRN Needs a stable, safe, therapeutic environment to prevent relapse and readmission.
[2019-04-27 19:30] VITALS: BP 140/83
[2019-04-27] MEDS: lithium carbonate 150mg capsule PO SCH (21:00)
--- NOTE | 2019-04-28 00:51 | NUR ---
Nursing Progress Note: Dylon Legal hold: 5250 Client on involuntary status for DTS, Report received from ADELITA Tran with use of SBAR. Why are they here: Pt was placed on a 5150 for grave disability by rpd after he was found in a episcopal naked. Pt was physically removed from episcopal by police and then brought to [facility] ED. Pt. has previous psych hospitalization a year ago. Assessment: What has happened this shift: Pt was observed outside of his room during shift change. Pt had a pleasant demeanor and appear to be socializing appropriately with other patients and staff. Pt spent some time in the group room with a visitor and the interaction between them appeared to be appropriate. When asked pt who had visited him, he stated it was his milton brother. Asked him if he was happy to see him he stated "of course." With a big smile. Pt was cooperative during 1:1 physical assessment but once a gain refused his HS meds. Pt denies any S/I, H/I, AV/H. After performing his physical assessment pt stated that he was going to go to sleep, which he did for a short period of time but kept coming out of his room about every hour checking on the clock. At about 0100, pt approached this securities underwriter and asked if there was any way he could get some cannabis. Informed pt that that is not something we can give him. Offered pt some medication for sleep but he refused. Pt attempted again to go to sleep. S/I, H/I: Denies A/VH: Denies Sleep: Difficulty sleeping, see sleep assessment for total hours ADL's: Independent Group attendance: None during cage shift manager Were meds taken: No, pt refused Any med S/E: No Mental Status Exam Appearance: Appropriately dressed in his own clothing Eye contact: Good Behavior: Calm, cooperative Speech: Clear Mood: "Good" appears depressed Affect: Blunted Thought process: Linear Thought Content: Not wanting to take his meds, wanting to talk to a "Doctor" Cognition: A&O X3 Insight: Poor. Judgment: Poor. Interventions PRN's used: Refused Therapeutic interventions: 1:1 assessment, active listening, therapeutic conversation, medication administration/education/monitoring, encouragement to attend groups, encouragement of PO food and fluids, reality orientation, limit setting, monitoring of behaviors and need for intervention, elopement prevention, Q 15 min safety checks. Restraints/seclusion/emergency medication: None Justification of Continued Inpatient Treatment: Pt. attempted to elope from the unit. Pt. refusing PRN
[2019-04-28 08:00] VITALS: BP 130/91
[2019-04-28] MEDS: ARIPIPRAZOLE 10 MG TABLET PO SCH ×2 (08:00→20:00)
--- NOTE | 2019-04-28 17:47 | NUR ---
NURSING PROGRESS NOTE Legal hold: 5150 Client on involuntary status for DTS Report received from Sally Edward RN with use of SBAR. Why are they here: Pt was placed on a 5150 for grave disability by rpd after he was found in a episcopal naked. Pt was physically removed from episcopal by police and then brought to [facility] ED. Pt. has previous psych hospitalization a year ago. Assessment: What has happened this shift: Received pt awake in recreation room starring out the window waiting for the sun to rise. Pt greeted this RN with compliments that appeared disingenuous and manipulative. He ate meals well today and even asked for snacks between meals, He appears tense, angry, and makes paranoid statements. He made demands today for good water and a low sodium diet Attempts to engage in his thought process behind these requests is met with belittling of this RN and confrontational statements. 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 Pt denies A/VH and denies any abnormal thinking. Pt awake all shift and spent a lot of time walking the halls and trying to listen to staff conversations. Although he attempts to get things by being abrupt and intimidating at times, he was redirectable today. S/I, H/I: Denies A/VH: Denies Sleep: None ADL's: Independent Group attendance: No Were meds taken: No Any med S/E: No Mental Status Exam Appearance: slightly disheveled Eye contact: Good Behavior: paranoid Speech: Clear, soft Mood: depressed Affect: constricted Thought process: Delusional, paranoid,Tangential Thought Content: Water contamination and conspiracies Cognition: Alert Insight: Poor. Judgment: Poor. Interventions PRN's used: None Therapeutic interventions: 1:1 assessment, active listening, therapeutic conversation, medication administration/education/monitoring, encouragement to attend groups, encouragement of PO food and fluids, reality orientation, limit setting, monitoring of behaviors and need for intervention, elopement prevention, Q 15 min safety checks. Restraints/seclusion/emergency medication: None Justification of Continued Inpatient Treatment: Pt. attempted to elope from the unit. Pt. refusing medications Needs a stable, safe, therapeutic environment to prevent relapse and readmission.
[2019-04-28 19:23] VITALS: BP 138/85
[2019-04-28] MEDS: lithium carbonate 150mg capsule PO SCH (21:00)
--- NOTE | 2019-04-29 01:56 | NUR ---
NURSING PROGRESS NOTE: Dylon Legal hold: 5150 Client on involuntary status for DTS Report received from GABBY Gabriel with use of SBAR. Why are they here: Pt was placed on a 5150 for grave disability by rpd after he was found in a temple naked. Pt was physically removed from temple by police and then brought to [facility] ED. Pt. has previous psych hospitalization a year ago. Assessment: Pt was outside his room during shift change and when approached by this bond underwriter, he stated that he had a good day since he got to see his son for a very brief period through the window. Pt again refused his medications even after reminding him that his dr believed this was the best plan for him. He sates that he still needs a printout of his medications. When reminded that these had been provided to him multiple times he says those were not the right one. He also states that he feels fine and doesn't need the medications and we are just trying to make him angry. "I think that I just need to go home and work on my issues with Rossy, my fiance." When asked patient if he believe this was the best thing for him, he states that that is personal and that he was not going to discuss that with his nurse. Pt is very contradicting of what was discussed with dr. He states that he has talked to multiple people, including his doctor about changing his diet to a low sodium diet. Believes that everybody is just ignoring his requests. Tried to explain to pt that it is probably because he doesn't need this change in his diet but he is not receptive to any information given. Pt is staff splitting. Pt asked this water for only minutes after receiving a pitcher of water from another staff. Minutes later, he goes to a different staff and requested another pitcher. Advised pt he could not have any more for tonight. Pt also asked multiple people for hallucinogens. What has happened this shift: S/I, H/I: Denies A/VH: Denies Sleep: See sleep assessment ADL's: Independent Group attendance: No Were meds taken: No Any med S/E: No Mental Status Exam Appearance: slightly disheveled Eye contact: Good Behavior: Intrusive, staff splitting, paranoid Speech: Clear, soft Mood: Depressed Affect: Labile Thought process: Disorganized Thought Content: Water, hallucinogens, medication Cognition: Alert and oriented x2 Insight: Poor. Judgment: Poor. Interventions PRN's used: None Therapeutic interventions: 1:1 assessment, active listening, therapeutic conversation, medication administration/education/monitoring, encouragement to attend groups, encouragement of PO food and fluids, reality orientation, limit setting, monitoring of behaviors and need for intervention, elopement prevention, Q 15 min safety checks. Restraints/seclusion/emergency medication: None Justification of Continued Inpatient Treatment: Pt. attempted to elope from the unit. Pt. refusing medications Needs a stable, safe, therapeutic environment to prevent relapse and readmission.
[2019-04-29 07:06] VITALS: BP 123/76
[2019-04-29] MEDS: ARIPIPRAZOLE 10 MG TABLET PO SCH ×2 (08:00→20:00)
--- NOTE | 2019-04-29 08:05 | NUR ---
PHONE CALL W/MAKENNA Blair left hand sign writer a message over the weekend requesting a call back (# [phone]). Spoke to Dylon before calling her back. He rescinded the ANNA a couple days ago and stated this morning he still does not want staff to talk to Makenna. Called Makenna back and let her know Dylon had rescinded the ANNA. She expressed concern that Dylon is telling her he is getting out soon. She reported he thinks their kids are not his and has asked her for documentation showing that they are his kids. She reported she is concerned for her safety if he were to be released now. Informed her she can call and provide information and encouraged her to do so if she is concerned for her safety. AGUILA Guevara
--- NOTE | 2019-04-29 16:58 | NUR ---
NURSING PROGRESS NOTE Legal hold: 5150 Client on involuntary status for DTS Report received from Elsy PIERRE with use of SBAR. Why are they here: Pt was placed on a 5150 for grave disability by rpd after he was found in a zoroastrian naked. Pt was physically removed from zoroastrian by police and then brought to [facility] ED. Pt. has previous psych hospitalization a year ago. Assessment: What has happened this shift: Received pt pacing around his room. Pt remains suspicious of staff and was resistant to am assessment. Pt also refused his medication (abilify), I dont need that, I dont know what you guys are trying to give me Pt no longer things water is poisoned but did says he was thinking that. Pt has little insight, but does state that the paranoid thoughts started years ago. Pt went to all meals and attended and participated in both groups. Pt denies depression and denies s.i. Pt also denies a/v hallucinations. Pt pleasant today and though guarded, exhibited no agitation. S/I, H/I: Denies A/VH: Denies Sleep: None ADL's: Independent Group attendance: yes Were meds taken: No Any med S/E: No Mental Status Exam Appearance: appropriate in street clothes Eye contact: Good Behavior: paranoid Speech: Clear, soft Mood: depressed Affect: constricted Thought process: Delusional, paranoid, Tangential Thought Content: Water contamination and conspiracies Cognition: Alert Insight: Poor. Judgment: Poor. Interventions PRN's used: None Therapeutic interventions: 1:1 assessment, active listening, therapeutic conversation, medication administration/education/monitoring, encouragement to attend groups, encouragement of PO food and fluids, reality orientation, limit setting, monitoring of behaviors and need for intervention, elopement prevention, Q 15 min safety checks. Restraints/seclusion/emergency medication: None Justification of Continued Inpatient Treatment: Pt. attempted to elope from the unit. Pt. refusing medications Needs a stable, safe, therapeutic environment to prevent relapse and readmission.
[2019-04-29 19:36] VITALS: BP 146/94
[2019-04-29] MEDS: lithium carbonate 150mg capsule PO SCH (21:00)
--- NOTE | 2019-04-30 00:40 | NUR ---
NURSING PROGRESS NOTE: Dylon Legal hold: 5150 Client on involuntary status for DTS Report received from GABBY Gabriel with use of SBAR. Why are they here: Pt was placed on a 5150 for grave disability by rpd after he was found in a [facility] witness naked. Pt was physically removed from je[facility] witness by police and then brought to [facility] ED. Pt. has previous psych hospitalization a year ago. Assessment: Pt was in group room playing cards with another patient. Greeted this mortgage underwriter and appeared pleasant. Pt states that he had a good day. Pt was observed pacing the halls and at time would parking technician front of the exit door and look at it for a long time. Pt was again refused physical assessment and his HS meds. He states "Sikhism is my medicine." When attempted to perform physical assessment patients states that he is not willing to answer any questions because whatever he answers will be used against him. "You guys are not respecting my wishes and listening to what I'm asking for." For this reason, his mental health status was unable to be assessed. Pt continues to be intrusive, and paranoid. Pt was in and out of the room throughout the night asking staff for different things. Pt did not make any requests for water thus far and no other agitation was noted. What has happened this shift: S/I, H/I: Unable to assess, pt will not answer any questions A/VH: unable to assess Sleep: See sleep assessment ADL's: Independent Group attendance: None during night guard Were meds taken: No Any med S/E: No Mental Status Exam Appearance: slightly disheveled Eye contact: Good Behavior: Intrusive, paranoid Speech: Clear, soft Mood: Depressed Affect: Labile Thought process: Disorganized Thought Content: Not wanting to take his meds Cognition: Alert and oriented x2 Insight: Poor. Judgment: Poor. Interventions PRN's used: None Therapeutic interventions: 1:1 assessment, active listening, therapeutic conversation, medication administration/education/monitoring, encouragement to attend groups, encouragement of PO food and fluids, reality orientation, limit setting, monitoring of behaviors and need for intervention, elopement prevention, Q 15 min safety checks. Restraints/seclusion/emergency medication: None Justification of Continued Inpatient Treatment: Pt. attempted to elope from the unit. Pt. refusing medications Needs a stable, safe, therapeutic environment to prevent relapse and readmission.
[2019-04-30 07:43] VITALS: BP 124/72
[2019-04-30] MEDS: ARIPIPRAZOLE 10 MG TABLET PO SCH (08:00)
[2019-04-30] MEDS ORDERED: risperiDONE 2mg tablet PO ONE (11:15)
[2019-04-30] MEDS ORDERED: haloperidol lactate 5mg/ml inj ONE (11:18)
[2019-04-30] MEDS ORDERED: diphenhydrAMINE 50 mg/ml inj ONE (11:18)
[2019-04-30] MEDS ORDERED: LORazepam 2 mg/ml vial ONE (11:19)
--- NOTE | 2019-04-30 11:58 | NUR ---
MET WITH SIGNIFICANT OTHER-MAKENNA Makenna, Dylon's significant other (ph# [phone]), was here to visit Dylon and requested to meet with policy writer sales. Met with her in the conference room. Dylon saw us walk in there and knocked on the door several times and at one point was pounding on the door. He slid an envelope under the door that contained pictures of their kids (ages 2 and 5). Makenna reported she is concerned for her and the kids safety if Dylon were to return home in his current state. She reported he seems ok sometimes (on the phone and when visiting) and then other times is really delusional and paranoid. She reported yesterday he was saying their kids are not his kids. She reported she had left the home for a week and stayed with her parents in the [place] because he Dylon was so paranoid. She was gone when he was arrested and later 5150'd. She reported he had opened all the windows in the house while it was snowing and would not let her turn the heat on. She also said that he did not let them leave the house at one point and he was holding one of their sons so she complied and did not leave. She reported this was all due to his paranoia. She reported he has never been aggressive with her or the kids. She reported she is worried about what he would do if he is still paranoid and delusional when he gets out of the hospital. She reported she will leave and go stay with her parents again in the [place] if needed. She reported after his hospitalization last year he took medications for a couple months and then weaned himself off them. 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 She noted he had gained a lot of weight from the medications. She reported he does not even like to take an advil and does not like to go to doctors. She reported he stopped using marijuana for a period of time. He started working again and was doing well at work. She reported his boss wanted him to apply for a promotion and this seemed to be too stressful for him. She reported he started using marijuana again without her knowing and that he was dabbing as well. AGUILA Guevara
--- NOTE | 2019-04-30 17:51 | NUR ---
NURSING PROGRESS NOTE Legal hold: 5150 Client on involuntary status for DTS Report received from GABBY Gutierrez with use of SBAR. Why are they here: Pt was placed on a 5150 for grave disability by [employer] after he was found in a temple naked. Pt was physically removed from temple by police and then brought to [facility] ED. Pt. has previous psych hospitalization a year ago. Assessment: What has happened this shift: Pt up wondering from the halls to his room to the TV rooms. Up for breakfast then laid back down on his bed. Refused medication, Abilify. Pt Riese today and later pt recieved B52 of Haldol 10mg, Ativan 2mg and Benadryl 50mg. He slept for about 5 hours and seemed clearer and less agitated when he woke about 1630. SEE med orders in eMAR for tonight. S/I, H/I: Denies A/VH: Denies but appears to RIS moving objects and talking to them in his room Sleep: Napped after IM injection ADL's: Independent Group attendance: No Were Meds taken: No Any med S/E: No Mental Status Exam Appearance: Street clothes too big for him Eye contact: Fair Behavior: Suspicious Speech: Clear, soft Mood: Confused and depressed Affect: Constricted Thought process: Delusional, Tangential Thought Content: Someone is trying to take his children somewhere Cognition: Alert Insight: Poor. Judgment: Poor. Interventions PRN's used: Haldol 10mg IM, Ativan 2mg IM & Benadryl 50mg IM Therapeutic interventions: 1:1 assessment, therapeutic communication to calm pt with active listening, medication administration/education/monitoring, encouragement to attend groups, encouragement of PO food, fluids and oral meds; Q 15 min safety checks. Restraints/seclusion/emergency medication: None Justification of Continued Inpatient Treatment: Riese hearing to provide medications to stabilize. Pt. attempted to elope from the unit last week. Needs a stable, safe, therapeutic environment to prevent relapse and readmission.
[2019-04-30 20:00] VITALS: BP 122/73
[2019-04-30] MEDS ORDERED: haloperidol lactate 5mg/ml inj IM ONE (21:00)
[2019-04-30] MEDS ORDERED: diphenhydrAMINE 50 mg/ml inj IM ONE (21:00)
[2019-04-30] MEDS: divalproex sod 250mg ER (24-hour) tablet PO SCH (21:00)
[2019-04-30] MEDS ORDERED: LORazepam 2 mg/ml vial IM ONE ×2 (21:00→23:50)
[2019-04-30] MEDS: risperiDONE 2mg tablet PO SCH (21:00)
[2019-04-30] MEDS ORDERED: OLANZapine **IM** 10 mg inj. IM ONE (23:55)
--- NOTE | 2019-05-01 01:27 | NUR ---
NURSING PROGRESS NOTE Legal hold: 5150 Client on involuntary status for DTS Report received from GABBY Gabriel with use of SBAR. Why are they here: Pt was placed on a 5150 for grave disability by [employer] after he was found in a judaism naked. Pt was physically removed from judaism by police and then brought to [facility] ED. Pt. has previous psych hospitalization a year ago. Assessment: What has happened this shift: The patient was seen in his room at shift change. This pattern chart writer entered his room for 1:1, but the patient refused all assessment. At med pass, the patient refused all medication. Because the patient is under a Riese order, the MD was called and order received for Ativan 2mg, Haldol 10mg, and Benadryl 50mg. When he refused his PO meds, he was told that he would get IM meds, and he agreed to it. The patient was medicated and went to sleep at ~2100. At ~midnight he woke up confused, paranoid, and altered. He came out of his room and was trying to go into other patient's rooms looking for exit. He refused to go back to his room, but re-direction made him agitated and angry. MD was called and order for Ativan 2mg IM and Zyprexa 10mg IM were ordered. Security had been called to help manage the situation. His roommate was disturbed and anxious. During this time, the patient became re-directable and was led to the observation room to sleep. The medication was held. Will continue to monitor. S/I, H/I: Does not answer A/VH: Does not answer Sleep: See sleep hours ADL's: Independent Group attendance: No Were Meds taken: IM B52 Any med S/E: No Mental Status Exam Appearance: Disheveled, thin man wearing too big street clothes. Eye contact: Fair Behavior: Suspicious, paranoid, agitated Speech: Clear, soft Mood: Confused and delusional Affect: Constricted Thought process: Delusional, Tangential Thought Content: Not known Cognition: Alert Insight: Poor. Judgment: Poor. Interventions PRN's used: Haldol 10mg IM, Ativan 2mg IM & Benadryl 50mg IM Therapeutic interventions: 1:1 assessment, therapeutic communication to calm pt with active listening, medication administration/education/monitoring, encouragement to attend groups, encouragement of PO food, fluids and oral meds; Q 15 min safety checks. Restraints/seclusion/emergency medication: None Justification of Continued Inpatient Treatment: Penny hearing to provide medications to stabilize. Pt. attempted to elope from the unit last week. Needs a stable, safe, therapeutic environment to prevent relapse and readmission.
--- NOTE | 2019-05-01 08:55 | NUR ---
Educated the pt on the definition of a Riese Hearing and the order to take PO medications or IM medications. Pt refused to acknowledge understanding of the order to take medications and he also refused to take PO and IM medications. This nurse then went to the [facility]. Shortly after it was brought to this nurses attention the pt was missing. After searching and not being able to find the pt a patient came to the staff and said, "I watched him walk by my door heard an alarm, briefly, then the alarm stopped, I did not know what it meant." It was determined that this pt left through the Exit door by the Community Room. Security and powerhouse helper notified, oscar alfonso called. Pt's fiance called to say the pt had notified a brother in [place] who was on his way to pick him up in the front of [place] courthouse. [facility] police notified of his whereabouts. Pt's family notified.
--- NOTE | 2019-05-01 09:29 | NUR ---
CALLED MAKENNA Called Makenna (ph# [phone]) to inform her that Dylon has AWOL'd again and has not been found yet. Asked her to call if she hears from him. Informed her sheet writer will call her back to let her know if Dylon makes it back on the unit. AGUILA Guevara
--- NOTE | 2019-05-01 16:19 | NUR ---
Pt BIB [employer] and security. He is in the shower with security at the door.
[2019-05-01 20:00] VITALS: BP 124/70
[2019-05-01] MEDS: divalproex sod 250mg ER (24-hour) tablet PO SCH (21:00)
[2019-05-01] MEDS: risperiDONE 2mg tablet PO SCH (21:00)
[2019-05-01] MEDS ORDERED: diphenhydrAMINE 25mg capsule PO PRN (21:40)
[2019-05-01] MEDS ORDERED: LORazepam 2 mg/ml vial IM PRN (21:45)
[2019-05-01] MEDS: haloperidol lactate 5mg/ml inj IM PRN (21:58)
[2019-05-01] MEDS: diphenhydrAMINE 50 mg/ml inj IM PRN (21:59)
--- NOTE | 2019-05-02 05:11 | NUR ---
NURSING PROGRESS NOTE: Dylon Legal hold: 5250 Client on involuntary status for DTS Report received from GABBY Skinner with use of SBAR. Why are they here: Pt was placed on a 5150 for grave disability by rpd after he was found in a tenriism naked. Pt was physically removed from tenriism by police and then brought to [facility] ED. Pt. has previous psych hospitalization a year ago. Assessment: Pt continues to be a line of sight for elopement risk. Pt is pleasant in conversation, but makes delusional statements. He refuses his scheduled depakote and risperdal. Insurance Sales Agent sits down and tries to educate pt on the importance of these medications and explains that because he is riesed, he will have to receive injections if he refuses the PO medication. Pt said he would rather have the shots because "I don't take pills." Pt was given Ativan 2mg, Benadryl 50mg, and Haldol 10 mg injectables. Pt complied with getting the injections. Pt slept for 5 hours on and off then got up and refused to try to go back to sleep. Pt talks about a friend who has a garett, wanting to show field underwriter the wilderness, and LSD. Insurance Sales Agent tries to reinforce reality to pt, but pt does not seem to comprehend. "I don't mind it here, you all are nice." S/I, H/I: denies A/VH: unable to assess Sleep: See sleep assessment ADL's: Independent Group attendance: None during fast food shift lead Were meds taken: No Any med S/E: No Mental Status Exam Appearance: slightly disheveled Eye contact: Good Behavior: Intrusive, paranoid Speech: Clear, soft Mood: Depressed Affect: Labile Thought process: Disorganized Thought Content: Not wanting to take his meds Cognition: Alert and oriented x2 Insight: Poor. Judgment: Poor. Interventions PRN's used: None Therapeutic interventions: 1:1 assessment, active listening, therapeutic conversation, medication administration/education/monitoring, encouragement to attend groups, encouragement of PO food and fluids, reality orientation, limit setting, monitoring of behaviors and need for intervention, elopement prevention, Q 15 min safety checks. Restraints/seclusion/emergency medication: None Justification of Continued Inpatient Treatment: Pt. attempted to elope from the unit. Pt. refusing medications Needs a stable, safe, therapeutic environment to prevent relapse and readmission.
[2019-05-02 07:46] VITALS: BP 119/75
[2019-05-02] MEDS ORDERED: haloperidol lactate 5mg/ml inj ONE (07:52)
[2019-05-02] MEDS ORDERED: diphenhydrAMINE 50 mg/ml inj ONE (07:52)
[2019-05-02] MEDS ORDERED: LORazepam 2 mg/ml vial ONE (07:53)
[2019-05-02] MEDS ORDERED: risperiDONE 0.5mg tablet PO SCH (08:00)
[2019-05-02] MEDS: diphenhydrAMINE 50 mg/ml inj IM PRN (08:05)
[2019-05-02] MEDS: haloperidol lactate 5mg/ml inj IM PRN (08:06)
[2019-05-02] MEDS ORDERED: LORazepam 2 mg/ml vial IM ONE (08:10)
--- NOTE | 2019-05-02 09:22 | NUR ---
PHONE CALL W/MOM Dylon's mom, Chelsea (ph# [phone]), called to share that the reason why Dylon does not want to take meds is because he fell into a deep depression with suicidal ideation after he had Invega Sustenna last year. She reported she is also very sensitive to medications and had a similar reaction herself to antidepressants. AGUILA Guevara
--- NOTE | 2019-05-02 10:39 | NUR ---
Reassessment: Pt PO 75-100% avg meals meeting needs. LBM 04/29. No nutrition concerns at this time. Will continue to monitor. Rec: 1. continue regular diet 2. bowel care as needed 3. wt per rx Addendum: 05/02/19 at [address] Amended: Links added.
--- NOTE | 2019-05-02 16:58 | NUR ---
NURSING PROGRESS NOTE Legal hold: 5150 Client on involuntary status for DTS Report received from GABBY Gutierrez with use of SBAR. Why are they here: Pt was placed on a 5150 for grave disability by [employer] after he was found in a buddhism naked. Pt was physically removed from buddhism by police and then brought to [facility] ED. Pt. has previous psych hospitalization a year ago. Assessment: What has happened this shift: Pt up and visible on the unit. Pt refused am medications and required security backup in order for him to comply with receiving IM meds per REISE. Once pt on bed, he took shots with out fighting, but did have security and multiple staff with hands on during injection for safety. Pt remains on LOS for Elopement risk. Pt refused assessment and basically denied everything: depression, S.I., a/v hallucinations, delusions. Pt did eat meals and partially attended groups. Pt affect flat and voice calm. Pt paced the unit and spoke with his fiance on the phone. S/I, H/I: Denies A/VH: Denies but appears to RIS moving objects and talking to them in his room Sleep: Napped after IM injection ADL's: Independent Group attendance: partial Were Meds taken: refused - received IM Any med S/E: No Mental Status Exam Appearance: Street clothes too big for him Eye contact: Fair Behavior: Suspicious Speech: Clear, soft Mood: Confused and depressed Affect: Constricted Thought process: Delusional, Tangential Thought Content: Someone is trying to take his children somewhere Cognition: Alert Insight: Poor. Judgment: Poor. Interventions PRN's used: Haldol 5mg IM, Ativan 1mg IM & Benadryl 50mg IM Therapeutic interventions: 1:1 assessment, therapeutic communication to calm pt with active listening, medication administration/education/monitoring, encouragement to attend groups, encouragement of PO food, fluids and oral meds; Q 15 min safety checks. Restraints/seclusion/emergency medication: None Justification of Continued Inpatient Treatment: Riese hearing to provide medications to stabilize. Pt. attempted to elope from the unit last week. Needs a stable, safe, therapeutic environment to prevent relapse and readmission.
[2019-05-02 20:00] VITALS: BP 124/81
[2019-05-02] MEDS: haloperidol 5mg tablet PO SCH (20:26)
--- NOTE | 2019-05-02 23:35 | NUR ---
NURSING PROGRESS NOTE: Dylon Legal hold: 5250 Client on involuntary status for DTS Report received from GABBY Tran with use of SBAR. Why are they here: Pt was placed on a 5150 for grave disability by [employer] after he was found in a restoration naked. Pt was physically removed from restoration by police and then brought to [facility] ED. Pt. has previous psych hospitalization a year ago. Assessment: Pt is quiet this shift, and spends most of his time in his room layng down. He is polite in conversation and smiles occasionally. Pt agrees to take PO medication this shift instead of injections.PT continues to be reised. PT is compliant with PO Haldol. He smiles after he takes it and participates in HS snack S/I, H/I: denies A/VH: unable to assess Sleep: See sleep assessment ADL's: Independent Group attendance: None during maintenance technician 2nd shift Were meds taken: yes Any med S/E: No Mental Status Exam Appearance: slightly disheveled Eye contact: Good Behavior: calm, quiet Speech: Clear, soft Mood: Depressed Affect: Labile Thought process: Disorganized Thought Content: MARLENI Cognition: Alert and oriented x2 Insight: Poor. Judgment: Poor. Interventions PRN's used: None Therapeutic interventions: 1:1 assessment, active listening, therapeutic conversation, medication administration/education/monitoring, encouragement to attend groups, encouragement of PO food and fluids, reality orientation, limit setting, monitoring of behaviors and need for intervention, elopement prevention, Q 15 min safety checks. Restraints/seclusion/emergency medication: None Justification of Continued Inpatient Treatment: Pt. attempted to elope from the unit. Pt. refusing medications Needs a stable, safe, therapeutic environment to prevent relapse and readmission.
[2019-05-03 08:21] VITALS: BP 113/86
--- NOTE | 2019-05-03 18:19 | NUR ---
NURSING PROGRESS NOTE Legal hold: 5150 Client on involuntary status for DTS Report received from GABBY Quintero with use of SBAR. Why are they here: Pt was placed on a 5150 for grave disability by [employer] after he was found in a yarsanism naked. Pt was physically removed from yarsanism by police and then brought to [facility] ED. Pt. has previous psych hospitalization a year ago. Assessment: What has happened this shift: Pt up and visible on the unit at change of shift. Pt had no morning medications ordered. Pt remains on LOS for Elopement risk. Pt refused assessment and basically denied everything: depression, S.I., a/v hallucinations, delusions. He did state that he has feelings sometimes of "rage inside", states "sometimes I have feelings of wanting to hurt someone." Pt did eat meals and partially attended groups. Pt affect flat and voice calm. Pt paced the unit and spoke with his fiance on the phone.He is pleasant and is seen being social with peers throughout the day as well. He still presents as paranoid and states that he does not feel he needs medication. He states that he doesn't think he will continue taking medications he is put on here, because, " I don't need them". Spoke with patient in length about what medications he is taking and what they are for. He reports that the information was "helpful". S/I, H/I: Denies A/VH: Denies Sleep: up all shift ADL's: Independent Group attendance: partial Were Meds taken: none ordered, no PRNs Any med S/E: No Mental Status Exam Appearance: Street clothes too big for him Eye contact: Fair Behavior: Suspicious Speech: Clear, soft Mood: Confused and depressed Affect: Constricted Thought process: Delusional, Tangential Thought Content: Someone is trying to take his children somewhere Cognition: Alert Insight: Poor. Judgment: Poor. Interventions PRN's used: none Therapeutic interventions: 1:1 assessment, therapeutic communication to calm pt with active listening, medication administration/education/monitoring, encouragement to attend groups, encouragement of PO food, fluids and oral meds; Q 15 min safety checks. Restraints/seclusion/emergency medication: None Justification of Continued Inpatient Treatment: Riese hearing to provide medications to stabilize. Pt. attempted to elope from the unit last week. Needs a stable, safe, therapeutic environment to prevent relapse and readmission.
[2019-05-03 20:00] VITALS: BP 138/90
[2019-05-03] MEDS: haloperidol 5mg tablet PO SCH (20:49)
--- NOTE | 2019-05-04 00:55 | NUR ---
NURSING PROGRESS NOTE: Dylon Legal hold: 5250 Client on involuntary status for DTS Report received from GABBY Tran with use of SBAR. Why are they here: Pt was placed on a 5150 for grave disability by [employer]pd after he was found in a jewish naked. Pt was physically removed from jewish by police and then brought to [facility] ED. Pt. has previous psych hospitalization a year ago. Assessment: Pt spends most of his time in his room laying down. PT is compliant with PO Haldol. He remains calm and quiet during assessment and does not have a lot to say. When asked what he was thinking about he replies, "my family." When asked how he is feeling he replies, "I don't really know." He denies SI/HI/AH/VH. He continues to have a flat affect but smiles occasionally. S/I, H/I: denies A/VH: denies Sleep: See sleep assessment ADL's: Independent Group attendance: None during hourly shift manager Were meds taken: yes Any med S/E: None reported, none observed Mental Status Exam Appearance: slightly disheveled Eye contact: Good Behavior: calm, quiet Speech: Clear, soft Mood: Depressed Affect: flat Thought process: MARLENI Thought Content: his family Cognition: Alert and oriented x2 Insight: Poor. Judgment: Poor. Interventions PRN's used: None Therapeutic interventions: 1:1 assessment, active listening, therapeutic conversation, medication administration/education/monitoring, encouragement to attend groups, encouragement of PO food and fluids, reality orientation, limit setting, monitoring of behaviors and need for intervention, elopement prevention, Q 15 min safety checks. Restraints/seclusion/emergency medication: None Justification of Continued Inpatient Treatment: Pt. attempted to elope from the unit. Pt. refusing medications Needs a stable, safe, therapeutic environment to prevent relapse and readmission.
[2019-05-04 08:00] VITALS: BP 120/86
--- NOTE | 2019-05-04 17:48 | NUR ---
NURSING PROGRESS NOTE Legal hold: 5150 Client on involuntary status for DTS Report received from RN with use of SBAR. Why are they here: Pt was placed on a 5150 for grave disability by [employer] after he was found in a hinduism naked. Pt was physically removed from hinduism by police and then brought to [facility] ED. Pt. has previous psych hospitalization a year ago. Assessment: What has happened this shift: Received Pt in room sitting on bed in no distress at beginning of shift. Pt did not have any meds ordered this shift and did not request or need PRN medication. Pt ate meals in community room with others. He used headphones to listen to music and pace hallways for a while, He engaged in playing [employer] for a short time as well. He attempts to find fault with staff members responses to questions or explanations for why something is happening. He remains suspicious and paranoid. His GF visited this AM and appeared pensive and concerned. He c/o how he was treated by police at time of 5150. He remains on a LOS for elopement risk. S/I, H/I: Denies A/VH: Denies Sleep: up all shift ADL's: Independent Group attendance: partial Were Meds taken: None ordered this shift, no PRNs Any med S/E: No Mental Status Exam Appearance: Street clothes Eye contact: Fair Behavior: Suspicious Speech: Clear, soft Mood: Confused and depressed Affect: Constricted Thought process: Delusional, Tangential Thought Content: Someone is trying to take his children somewhere Cognition: Alert Insight: Poor. Judgment: Poor. Interventions PRN's used: none Therapeutic interventions: 1:1 assessment, therapeutic communication to calm pt with active listening, medication administration/education/monitoring, encouragement to attend groups, encouragement of PO food, fluids and oral meds; Q 15 min safety checks. Restraints/seclusion/emergency medication: None Justification of Continued Inpatient Treatment: Riese hearing to provide medications to stabilize. Pt. attempted to elope from the unit last week. Needs a stable, safe, therapeutic environment to prevent relapse and readmission.
[2019-05-04 20:00] VITALS: BP 147/93
[2019-05-04] MEDS: haloperidol 5mg tablet PO SCH (20:36)
--- NOTE | 2019-05-05 00:32 | NUR ---
NURSING PROGRESS NOTE: Legal hold: 5250 Client on involuntary status for DTS Report received from GABBY Tran with use of SBAR. Why are they here: Pt was placed on a 5150 for grave disability by rpd after he was found in a temple naked. Pt was physically removed from temple by police and then brought to [facility] ED. Pt. has previous psych hospitalization a year ago. Assessment: Pt spends most of his time in his room listening to headphones or talking to the LOS sitter. Pt is calm during 1:1 but refused physical assessment; but he would answer some questions to that effect. Pt states he "feels better" and had "a good day'. Pt does not offer up much information, and gives short answers to assessment questions. He denies all the symptoms and is compliant with HS PO medications. He trimmed his suarez and listened to music a bit more before turning into sleep. S/I, H/I: Denies Both A/VH: Denies Both Sleep: See sleep assessment ADL's: Independent Group attendance: N/A Were meds taken: Yes Any med S/E: None reported, none observed Mental Status Exam Appearance: Appropriate, wearing personal sweatshirt and unit scrub pants, nonskid socks Eye contact: Good (Direct) Behavior: Cooperative, Calm, Isolative Speech: Clear, soft Mood: "Feel better" Affect: Blunted Thought process: MARLENI, but no delusional or paranoid statements Thought Content: wanting to trim suarez, feeling better Cognition: A/Ox3 Insight: Poor Judgment: Poor Interventions PRN's used: None Therapeutic interventions: 1:1 assessment, active listening, therapeutic conversation, medication administration/education/monitoring,reality orientation, limit setting, monitoring of behaviors and need for intervention, elopement prevention, Q 15 min safety checks. Restraints/seclusion/emergency medication: None Justification of Continued Inpatient Treatment: Pt. attempted to elope from the unit and is therefore on LOS. Needs a stable, safe, therapeutic environment to stabilize and prevent relapse and readmission.
[2019-05-05 07:43] VITALS: BP 144/94
--- NOTE | 2019-05-05 15:55 | NUR ---
NURSING PROGRESS NOTE Legal hold: 5150 Client on involuntary status for DTS Report received from RN with use of SBAR. Why are they here: Pt was placed on a 5150 for grave disability by [employer] after he was found in a congregational naked. Pt was physically removed from congregational by police and then brought to [facility] ED. Pt. has previous psych hospitalization a year ago. Assessment: What has happened this shift: Up to breakfast and eating with others in group room, walks hallways with sitter for most of morning. Remains on LOS for x2 elopement. Wears headphones. Pleasant and calm. Suspicious and paranoid but to a lesser degree. No meds are ordered and no prn's needed. Went to patio with group and before agreed not to "run" or cause any problems. No incidents occurred. No delusional statements today. discharge tomorrow per DENISHA Nguyen. Eating well and drinking regular water. No suicidal thoughts. S/I, H/I: Denies A/VH: Denies Sleep: napping at 1400 for a short while ADL's: Independent Group attendance: yes Were Meds taken: None ordered this shift, no PRNs Any med S/E: No Mental Status Exam Appearance: Street clothes Eye contact: Fair Behavior: cooperative Speech: soft, slow Mood: Depressed Affect: Constricted Thought process: Mostly linear Thought Content: Leaving tomorrow Cognition: Alert Insight: Poor. Judgment: Poor. Interventions PRN's used: none Therapeutic interventions: 1:1 assessment, therapeutic communication to calm pt with active listening, medication administration/education/monitoring, encouragement to attend groups, encouragement of PO food, fluids and oral meds; Q 15 min safety checks. Restraints/seclusion/emergency medication: None Justification of Continued Inpatient Treatment: Penny hearing to provide medications to stabilize. Pt. attempted to elope from the unit last week. Needs a stable, safe, therapeutic environment to prevent relapse and readmission.
[2019-05-05 20:00] VITALS: BP 145/97
[2019-05-05] MEDS: haloperidol 5mg tablet PO SCH (20:32)
--- NOTE | 2019-05-06 00:34 | NUR ---
NURSING PROGRESS NOTE Legal hold: 5150 Client on involuntary status for DTS Report received from RN with use of SBAR. Why are they here: Pt was placed on a 5150 for grave disability by [employer] after he was found in a restoration naked. Pt was physically removed from restoration by police and then brought to [facility] ED. Pt. has previous psych hospitalization a year ago. Assessment: What has happened this shift: Up pacing and watching Superbowl in group room, Wears headphones. Pleasant and calm. Suspicious and paranoid but to a lesser degree. Med compliant this shift and no prn's needed. No delusional statements today. discharge tomorrow per DENISHA Nguyen. Eating well and drinking regular water. No suicidal thoughts. S/I, H/I: Denies A/VH: Denies Sleep: napping at 1400 for a short while ADL's: Independent Group attendance: yes Were Meds taken: None ordered this shift, no PRNs Any med S/E: No Mental Status Exam Appearance: Street clothes Eye contact: Fair Behavior: cooperative Speech: soft, slow Mood: Depressed Affect: Constricted Thought process: Mostly linear Thought Content: Leaving tomorrow Cognition: Alert Insight: Poor. Judgment: Poor. Interventions PRN's used: none Therapeutic interventions: 1:1 assessment, therapeutic communication to calm pt with active listening, medication administration/education/monitoring, encouragement to attend groups, encouragement of PO food, fluids and oral meds; Q 15 min safety checks. Restraints/seclusion/emergency medication: None Justification of Continued Inpatient Treatment: Rinadya hearing to provide medications to stabilize. Pt. attempted to elope from the unit last week. Needs a stable, safe, therapeutic environment to prevent relapse and readmission.
[2019-05-06 07:56] VITALS: BP 133/87
[2019-05-06] MEDS ORDERED: NICO-668 BC (14:48)
[2019-05-06] MEDS ORDERED: HALO5TAB PO (14:48)
--- NOTE | 2019-05-06 16:49 | NUR ---
Discharge Note: Pt dc'd to mother at 1615. Discharge instructions, including f/u appt and medications explained to the patient, pt verbalized understanding, signed and copies sent with the pt. Pt sent with written scrip for his discharge medication for him to take to a pharmacy of his choice. Pt provided with smoking cessation information and scrip for nicotine lozenges. Pt denies paranoia and denies depression and denies S.I. Addendum: 05/06/19 at 8364 by Ignacio Busby RN All belongings returned to pt and he signed in agreement that he received all he came in with.
== END 2019-05-06 16:32 | disposition home or self-care (01) | DRG 753 ==
LOC: ADULT MH 21:00
PROVIDERS: ADMIT Psychiatry & Neurology Psychiatry; ATTEND Psychiatry & Neurology Psychiatry
DX: F31.2 Bipolar disorder, current episode manic severe with psychotic features (principal); R45.851 Suicidal ideations; F12.90 Cannabis use, unspecified, uncomplicated; F41.1 Generalized anxiety disorder; Z87.891 Personal history of nicotine dependence; Z88.0 Allergy status to penicillin
CPT/HCPCS: 36415; 80061; 87081; J1200; J1630; J2060; Q0163; Z7610

== ENCOUNTER 2020-12-02 22:00 | Emergency (ER) | payer MEDICAID ==
[~2020-12-02] VITALS: Ht 182.9 cm; Wt 72.7 kg
[~2020-12-02 22:00] MED LIST changes: +HALO5TAB PO; +NICO-668 BC
[2020-12-02] MEDS ORDERED: normal saline 1000ml 1,000 ML IVB ONE (22:10)
[2020-12-02 22:25] LABS: BASOPHILS # (AUTO) 0.1 X10'3 (0-0.2); BASOPHILS % (AUTO) 0.5 % (0-1); EOSINOPHILS % (AUTO) 0.2 % (0-6); HEMATOCRIT 50.1 % (42.0-52.0); HEMOGLOBIN 16.6 g/dl (14.0-17.9); LYMPHOCYTES # (AUTO) 2.5 X10'3 (1.1-4.8); LYMPHOCYTES % (AUTO) 13.2 % (21-51); MEAN CORPUSCULAR HEMOGLOBIN 31.9 PG (27.0-31.0); MEAN CORPUSCULAR HGB CONC 33.1 g/dL (33.0-36.5); MEAN CORPUSCULAR VOLUME 96.2 FL (78-98); MEAN PLATELET VOLUME 9.7 FL (7.4-10.4); MONOCYTES # (AUTO) 1.3 X10'3 (0-0.9); MONOCYTES % (AUTO) 7.3 % (2-12); NEUTROPHILS # (AUTO) 14.6 X10'3 (1.8-7.7); NEUTROPHILS % (AUTO) 78.8 % (42-75); PLATELET COUNT 252 X10'3 (140-440); RED BLOOD COUNT 5.21 X10'6 (4.70-6.10); RED CELL DISTRIBUTION WIDTH 14.1 % (11.5-14.5); WHITE BLOOD COUNT 18.6 X10'3 (4.5-11.0)
[2020-12-02] MEDS ORDERED: normal saline 1000ml 1,000 ML IV ONE ×2 (22:25→22:35)
[2020-12-02 22:37] LABS: ALANINE AMINOTRANSFERASE 28 U/L (12-78); ALBUMIN 4.7 G/DL (3.4-5.0); ALBUMIN/GLOBULIN RATIO 1.4 (1.1-1.5); ALKALINE PHOSPHATASE 55 IU/L (46-116); ANION GAP 20 (8-16); ASPARTATE AMINO TRANSFERASE 20 U/L (10-37); BILIRUBIN,TOTAL 0.6 MG/DL (0.1-1.0); BLOOD UREA NITROGEN 11 MG/DL (7-18); BUN/CREATININE RATIO 8.4 (5.4-32.0); CALCIUM 8.9 MG/DL (8.5-10.1); CHLORIDE 101 MMOL/L (99-107); CREATININE 1.31 MG/DL (0.60-1.10); GLUCOSE 145 MG/DL (70-104); POTASSIUM 3.8 MMOL/L (3.5-5.1); SODIUM 141 MMOL/L (135-145); eGFR 62 ML/MIN
[2020-12-02 22:39] LABS: CREATINE KINASE 313 U/L (39-308); ETHANOL < 0.010 GM/DL (0.0-0.010)
[2020-12-02 22:43] LABS: ACETAMINOPHEN < 2.0 UG/ML (10-30)
[2020-12-02] MEDS ORDERED: LORazepam 2 mg/ml vial ONE (22:49)
[2020-12-03 01:50] LABS: CLARITY,URINE CLEAR (Clear); COLOR,URINE YELLOW (Yellow); GLUCOSE, URINE NEGATIVE (Neg); KETONES,URINE 15 mg/dl (Neg); LEUKOCYTE ESTERASE ,URINE NEGATIVE (Neg); NITRITES, URINE NEGATIVE (Neg); OCCULT BLOOD,URINE NEGATIVE (Neg); PROTEIN,URINE NEGATIVE (Neg); UROBILINOGEN,URINE 0.2 E.U/dL (0.2-1.0)
[2020-12-03 01:52] LABS: URINE AMPHETAMINE SCREEN NEGATIVE (Neg); URINE BARBITUATE SCREEN NEGATIVE (Neg); URINE BENZODIAZEPINES SCREEN NEGATIVE (Neg); URINE CANNABINOID SCREEN POSITIVE (Neg); URINE COCAINE SCREEN NEGATIVE (Neg); URINE METHADONE SCREEN NEGATIVE (Neg); URINE OPIATE SCREEN NEGATIVE (Neg); URINE PHENCYCLIDINE SCREEN NEGATIVE (Neg)
[2020-12-03 02:00] LABS: UA COLLECTION TYPE CLN CATCH MIDSTREAM
[2020-12-03 07:33] LABS: ALBUMIN 3.7 G/DL (3.4-5.0); ANION GAP 11 (8-16); BLOOD UREA NITROGEN 8 MG/DL (7-18); BUN/CREATININE RATIO 9.9 (5.4-32.0); CALCIUM 8.1 MG/DL (8.5-10.1); CHLORIDE 109 MMOL/L (99-107); CREATININE 0.81 MG/DL (0.60-1.10); GLUCOSE 87 MG/DL (70-104); POTASSIUM 3.8 MMOL/L (3.5-5.1); SODIUM 144 MMOL/L (135-145); TOTAL CARBON DIOXIDE 23.9 MMOL/L (24-32); eGFR > 90 ML/MIN
--- NOTE | 2020-12-03 12:27 | NUR ---
pt called and said that she wants to be informed when he is released, she is worried that he will come to the house she is staying at and try to harm her and the kids. pt wants to speak to [facility] and tell them of the situation, she believes the patient will not be honest with staff regarding his history.
--- NOTE | 2020-12-03 12:32 | NUR ---
IF PT IS DISCHARGED, CALL AND INFORM HER THAT HE IS BEING DISCHARGED
--- NOTE | 2020-12-03 13:45 | NUR ---
PT WAS SEEN BY [facility] RIGHT OF [employer] BU[employer]ER AND WAS PLACED ON 5150
--- NOTE | 2020-12-03 20:00 | NUR ---
PT RESTING IN BED W/ EYES CLOSED. PT STATES HE HAS NO PLAN FOR SELF HARM AND DOES NOT WANT TO END HIS LIFE. PT HAS CALM DEMEANOR, CONVERSING APPROPRIATLY.
--- NOTE | 2020-12-03 20:02 | NUR ---
BED TRANSFER TO OVERFLOW
--- NOTE | 2020-12-03 20:15 | NUR ---
The patient moved to the ER overflow. He is resting quietly on his bed.
--- NOTE | 2020-12-03 22:02 | NUR ---
Attempted to assess the patient for the severity of his psychiataric symptoms but he was guarded and evasive and denied any kind of symptoms. He did allow for a covid swab to be done.
--- NOTE | 2020-12-03 23:20 | NUR ---
The patient is awake and sitting on his bed. He refused offer of medications
--- NOTE | 2020-12-03 23:37 | NUR ---
Psychiatric consult requested to [facility] nurse charge rn for patient to be started on medications.
--- NOTE | 2020-12-04 00:27 | NUR ---
Patient still awake but continues to decline medications. He is calm and cooperative
--- NOTE | 2020-12-04 02:06 | NUR ---
The patient is awake and in and out of the bathroom.
--- NOTE | 2020-12-04 03:37 | NUR ---
The patient continues to be restless and awake
--- NOTE | 2020-12-04 05:36 | NUR ---
The patient has been awake during the entire night except for approximately for one hour. He has repeatedly refused medications. He is guarded and possibly paranoid
--- NOTE | 2020-12-04 06:44 | NUR ---
Assumed care of patient, pt. up and pacing the unit at this time. He is requesting a shower and was given towels to was up.
--- NOTE | 2020-12-04 08:00 | NUR ---
Pt. asked to call his girlfriend, phone call appeared to go well. He remains restless with a desire to leave, will continue to monitor closely.
--- NOTE | 2020-12-04 09:00 | NUR ---
Pt. up pacing the unit, he talks occassionally in a plesant manner with staff. Will continue to monitor.
--- NOTE | 2020-12-04 09:15 | NUR ---
Pt. refuses any physical or mental health assessments to be completed. He states in a paranoid manner, "No, I just want to leave." When asked where he will go by this inspector automatic typewriter, pt. reports he will be out on the streets because he can no longer stay with his girlfriend. Pt. appears very suspicious and untrusting of staff.
--- NOTE | 2020-12-04 09:30 | NUR ---
Pt. attempted to elope out the front of the unit, he made it out into the hallway followed by staff. Security was called, and pt. was able to be redirected back onto the unit. He was provided re-education regarding his hold and reported understanding. Pt. is aruna for remaining on the unit at this time, will continue to monitor.
--- NOTE | 2020-12-04 10:30 | NUR ---
Pt's mother in to visit at this time, visit appears to be going well.
--- NOTE | 2020-12-04 11:30 | NUR ---
Pt. continues to pace restlessly at this time, he continues to refuse any intervention. Pt. appears very paranoid and is demanding at times. This freelance copywriter informed him that [facility] would be coming to speak to him regarding his hold. Pt. demanded, "I want to talk to Jodi Vargas!" This freelance copywriter provided education to pt. that, that is his right and telephone number provided to pt.
--- NOTE | 2020-12-04 12:33 | NUR ---
Pt. continues to pace at this time, he is awaiting speaking with [facility]. Will continue to monitor closely
--- NOTE | 2020-12-04 13:26 | NUR ---
Pt. continues to pace at this time, he is talking on the telephone to [facility] patient's rights at this time, he had called them earlier.
--- NOTE | 2020-12-04 14:17 | NUR ---
Pt. laying in bed at this time, rr even and unlabored. Received a telephone call from [facility]. They requested Covid test results and TSH labs to be sent, will consider taking patient.
--- NOTE | 2020-12-04 15:16 | NUR ---
Per [facility], pt. has been accepted at [facility]. He continues to pace at this time, no s/s of distress noted.
--- NOTE | 2020-12-04 16:34 | NUR ---
Pt. sleeping at this time, laying on his left side, rr even and unlabored. TSH results sent to [facility] [place]
--- NOTE | 2020-12-04 16:50 | NUR ---
[facility] and Covid labs faxed to [facility] per request.
--- NOTE | 2020-12-04 17:26 | NUR ---
Pt. pacing at this time, no s/s of distress.
--- NOTE | 2020-12-04 17:47 | NUR ---
Pt's mother in to visit at this time.
--- NOTE | 2020-12-04 19:00 | NUR ---
Pt pacing the unit, not following instructions. Security called and limits were set. Pt sarcastic and gamey, but became compliant.
--- NOTE | 2020-12-04 21:00 | NUR ---
Pt continues to pace around the unit; though, he now is staying without the agreed upon boundaries.
--- NOTE | 2020-12-04 23:00 | NUR ---
Pt napped for about an hours and now is up pacing again.
--- NOTE | 2020-12-05 01:00 | NUR ---
Pt continues to take cat naps and has been up to the bathroom x 2. Pt has no requests or complaints.
--- NOTE | 2020-12-05 03:00 | NUR ---
Pt sitting up in bed reading magazines. No complaints or requests.
--- NOTE | 2020-12-05 05:00 | NUR ---
Pt up pacing the [facility] and apolegized to staff for his behavior last night.
--- NOTE | 2020-12-05 07:52 | NUR ---
Pt making multiple phone calls. RN then heard pt talking stating " Ineed to report a hostage situation. I'm being held against my will". RN took phone and explained he will not be allowed to use the phone if he abuses priviledges.
--- NOTE | 2020-12-05 08:20 | NUR ---
Pt breakfast at bedside. He continues to pace and did not eat
[2020-12-05] MEDS ORDERED: haloperidol lactate 5mg/ml inj IM ONE (09:25)
[2020-12-05] MEDS ORDERED: LORazepam 2 mg/ml vial IM ONE (09:25)
[2020-12-05] MEDS ORDERED: diphenhydrAMINE 50 mg/ml inj IM ONE (09:25)
--- NOTE | 2020-12-05 09:44 | NUR ---
PT tried to elope. Security called and at pt bedside. MD Sanchez notified. Pt antagonizes staff and security, taunting them and stating he can do what he wants. notified and ordered Benadryl, Ativan Haldol IM. Pt continues to taunt and antagonize stating he refuses to take any meds and will do what he wants. Pt restrained per security and IM meds given per RN. Pt now on 1:1 d/t meds and restraints.
--- NOTE | 2020-12-05 10:54 | NUR ---
Pt sleeping, resp unlabored, VSS
--- NOTE | 2020-12-05 12:38 | NUR ---
Pt awake. Did not speak or ask anyone for help , turned to his side and began urinating on the floor. When asked why he did not ask for help he states he did not want to.
--- NOTE | 2020-12-05 13:05 | NUR ---
RN received message that [facility] called to ask about pt. RN called back to smelter charger at [employer] who was unavailable at the time and message left to call this RN back.
--- NOTE | 2020-12-05 13:47 | NUR ---
Pt lunch arrived. States he will eat. Hand restraints removed for lunch and pt agrees that if his behavior remains cooperative he may keep these off.
--- NOTE | 2020-12-05 14:34 | NUR ---
Pt reached over on his bed to the settings and began raising the height unsafely. RN and tech told pt this is unacceptable, lowered the bed to safe low level and locked the adjustment settings. Pt then sat up in bed to use his urinal. RN noticed a large bunch of hair next to his urinal on the bedside stand after he used the urinal and placed it on the stand. THis hair was not there before as the RN brought over this stand for his lunch. Pt refuses to state where the hair came from.
[2020-12-05] MEDS ORDERED: haloperidol lactate 5mg/ml inj IM PRN (15:25)
--- NOTE | 2020-12-05 17:06 | NUR ---
Pt sleeping, resp unlabored
--- NOTE | 2020-12-05 17:32 | NUR ---
Pt underpants and bedding wet. Security at bedside to unlock feet restraints. No hand restraint present. RN and tech changed bedding. Pt given fresh scrubs but pt refuses to change underpants. Explained to pt it is risk to keep wet/dirty clothing on which can cause skin breakdown. PT continues to refuse. Pt lays back in bed. Feet restraints on.
--- NOTE | 2020-12-05 17:58 | NUR ---
All Restraints removed. Pt dinner here.
--- NOTE | 2020-12-05 19:00 | NUR ---
The patient is awake, mid fowlers in bed, he exhibits an intense glare. Patient was recently taken out of restraints. Patient refused his dinner. He exhibits agitation. Dr. Diaz has been contacted for a consult. Per Dr. Diaz give patient Zyprexa Zytis 20 mg PO now and schedule for Zyprexa 10 mg PO BID tomorrow. Also, Dr. Azevedo has ordered Ativan 2mg IM, Benadryl 50 mg IM, and Haldol 5 mg IM Q 8 hours for agitation/anxiety. The patient looks to be responding to internal stimuli.
[2020-12-05] MEDS: OLANZapine 5mg rapidly disint. tablet PO ONE ×2 (19:23→19:35)
[2020-12-05] MEDS: haloperidol lactate 5mg/ml inj IM PRN (19:51)
[2020-12-05] MEDS: LORazepam 2 mg/ml vial IM PRN (19:52)
[2020-12-05] MEDS: diphenhydrAMINE 50 mg/ml inj IM PRN (19:52)
[2020-12-05] MEDS: OLANZapine 5mg rapidly disint. tablet PO SCH (20:00)
--- NOTE | 2020-12-05 20:12 | NUR ---
This patient agreed to take his ordered Zyprexa Zytis oraly, once at bedside with the medication he then refused. Patient exhibits agitation and anxiety, he was oriented to year but not month. Paranoia is present. Security was called to bedside. A B-52 was given IM, see MAR entry. Patient is in view from nurses station. He will be closely observed for patient and staff safety.
--- NOTE | 2020-12-05 22:13 | NUR ---
Patient is sleeping quietly, low fowlers in bed. In direct view from nurses station. Patient is w/d in no acute distress.
--- NOTE | 2020-12-05 22:45 | NUR ---
The patient awoke and was given warm blankets. Patient does not answer questions about his mental health. Close monitoring of patient will continue.
--- NOTE | 2020-12-06 01:01 | NUR ---
Patient remains sleeping. Mid fowlers in bed. In view from nurses station. Patient has self re-positioned on occasion.
--- NOTE | 2020-12-06 02:46 | NUR ---
Patient sleeping low fowlers position in bed with knees flexed. In view from nurses station. No distress noted.
--- NOTE | 2020-12-06 02:47 | NUR ---
Patient sleeping low fowlers position. No distress. In view from nurses station.
--- NOTE | 2020-12-06 04:08 | NUR ---
Patient is sleeping quietly on his right side. No distress. Good color.
--- NOTE | 2020-12-06 05:16 | NUR ---
Patient is awake and pacing. Morning vital signs done. Patient exhibits some mild paranoia, he is more linear than the previous evening. The patient is suspect of taking Zyprexa or other medications. Patient minimizes his psychological situation. His decision making process is poor. He is starting to make some direct eye contact. Patient is being observed closely as he continues to be an elopement risk.
--- NOTE | 2020-12-06 06:55 | NUR ---
Assumed care of patient. Pt pacing with blanket wrapped around him. Calm.
[2020-12-06] MEDS: OLANZapine 5mg rapidly disint. tablet PO SCH ×2 (08:00→19:58)
--- NOTE | 2020-12-06 08:58 | NUR ---
Pt awake talking on phone to his mother. Pt is calm. Pt has been pacing the unit intermittently. Pt refused his AM Zyprexa "I don't feel I need this." Pt refused his breakfast stating "I am just not hungry." Pt has eaten minimally since his admit. Pt appears to be paranoid, but denies all mental health symptoms. Pt spoke to his children this morning, which seemed to go well. Pt requested to speak with "Dr. Diaz, " pt may then "take his medication." Pt's 5150 is being continued, pt voices "I don't feel I need to be admitted anywhere." Pt is dismissive with magnetic tape typewriter operator, but remained calm.
--- NOTE | 2020-12-06 10:57 | NUR ---
Pt lying supine on his bed with eyes open. Pt was observed coloring earlier. No behaviors to report.
--- NOTE | 2020-12-06 13:27 | NUR ---
Pt pacing - lunch at bedside. Pt refusing to eat "nah I'm okay." Pt has continued to remain calm and cooperative.
--- NOTE | 2020-12-06 15:05 | NUR ---
DENISHA Del Toro came down to assess pt as pt stated he would take medication after speaking to a psych provider. Pt wasn't able to verbalize the reason as not to take medication, except for he didn't like the side effects and doesn't feel he needs it.
--- NOTE | 2020-12-06 15:33 | NUR ---
Pt lying in bed with eyes open. Noted pt is refusing food, but is drinking moderate amounts of water. Pt is restless, but remains calm. Pt continues to refuse any medication.
--- NOTE | 2020-12-06 17:25 | NUR ---
Pt had a urinal next to bed and becomes irriated when typewriter aligner tried to take away. Hydrogen Cell Tender explained that he is able to walk to the bathroom and doesn't need it. As soon as typewriter aligner walked away pt voided in the urinal. When asked to empty it pt was cooperative, but wouldn't let go of urinal.
--- NOTE | 2020-12-06 19:24 | NUR ---
The patient was up on the unit and pacing in front of the nursing station. He was asking odd questions about the world series. His food tray came and again he refused his food. Discussed medications with him and the importance of starting medications but the patient refuses to accept need for medications. He believes that if he refuses medications the county will release him to home. He also stated that he did not like the way medications affected his "adrenaline" He had difficulty understanding what he meant by that but did state, "I like my adrenaline because it protects me" but wouldn't elaborate. When asked why he was refusing all of his meals he stated, "I don't like that shit...I've decided I won't eat any of it" He does admit to voices telling him that "the Giants are going to loose" He also admits to paranoia and stated he does not trust the staff here and added, "I don't trust anybody here" When asked what his discharge plan would be if he were to leave the hospital he stated he would go up to [place] and get his personal belongings and stated that he had several "destinations in mind" where he could go but would not elaborate. He was unconcerned that his family is afraid of him and stated "that's okay"
--- NOTE | 2020-12-06 20:48 | NUR ---
The patient is resting on his bed but is restless
--- NOTE | 2020-12-06 22:44 | NUR ---
The patient is resting on his bed reading. He is in and out of the bathroom.
--- NOTE | 2020-12-07 00:31 | NUR ---
The patient is resting on his bed but is awake
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
--- NOTE | 2020-12-07 03:32 | NUR ---
The patient appears to be asleep at this time
--- NOTE | 2020-12-07 04:55 | NUR ---
The patient has been awake for the majority of the night and only slept approximately 45 minutes total. He is disorganized and at times makes odd statements. He has been refusing medications and food. He is drinking water.
[2020-12-07] MEDS: OLANZapine 5mg rapidly disint. tablet PO SCH ×2 (08:00→20:00)
--- NOTE | 2020-12-07 08:00 | NUR ---
Patient is awake, he stated he has not slept much this past night. He states that he is hungry and would like breakfast. I encouraged him to eat and gave him his breakfast as well as an ensure. He declined, yet asked if the food could stay on the bedside table just incase he decides to eat it later.
--- NOTE | 2020-12-07 10:00 | NUR ---
Patient has drank some juice this morning and has taken a few bites of food. Currently I assisted him with a bedbath, change of clothes and change of linen. He is becoming a litle more comfortable with staff. He is having more conversations yet he declined his morning medication as he feels he cannot trust anyone in the world yet.
--- NOTE | 2020-12-07 10:48 | NUR ---
Dylon is up ambulating talking with others. He has used the phone numerous times to call his friends. He is feeling a litle more calm and relaxed. All his needs are met at this time.
--- NOTE | 2020-12-07 12:02 | NUR ---
Dylon is up walking and increasing his communication with staff after drawing and coloring with crayons. He requested a peach and I sent down a request to the kitchen. I talked with patient in detail about the importance of eating food. He said he would try to eat if the food looked good.
--- NOTE | 2020-12-07 13:50 | NUR ---
Patient refused to eat lunch. He did drink coffee with milk and sugar.
--- NOTE | 2020-12-07 14:24 | NUR ---
Patient is pacing back and forth on the unit.
--- NOTE | 2020-12-07 16:28 | NUR ---
Patient on the phone talking with family as he sits on bed.
--- NOTE | 2020-12-07 17:46 | NUR ---
Patient appears to be resting in bed with eyes shut. No distress. All needs met at this time.
--- NOTE | 2020-12-07 18:32 | NUR ---
Pt is laying in bed, endorses feeling paranoid, but states he is here "for some rest and relaxation." Pt is not eating or drinking. Meals and beverages were encouraged but pt continues to decline. States he has no needs at this time. Appears to be resting comfortably.
--- NOTE | 2020-12-07 21:09 | NUR ---
Pt spent time talking to family, states he would feel better if he could smoke some MJ. Pt has been pacing the floor, spoke with another patient briefly, used the bathoom and returned to bed. Pt is sitting quietly on his bed.
--- NOTE | 2020-12-07 22:57 | NUR ---
pt spent some time talking w/PCT, pt is pleasant, cooperative, fearful and paranoid. Continues to decline medications offered. Pt agrees that he hasnt been able to sleep but now is currently asleep rr 14.
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
--- NOTE | 2020-12-08 04:12 | NUR ---
P/c from restpadd for Nurse to nurse, they are requesting CBC due to pts WBC count. Hospital Admitting Clerk is here to draw blood and pt is refusing to allow blood draw. Pt is now up pacing. Pt states something about space as his reason for not allowing blood draw.
--- NOTE | 2020-12-08 04:20 | NUR ---
Pt is paranoid up pacing, fills his cup with water from the bathroom to drink. Pt states "Can I see my discharge paperwork please?" Explained to patient he currently does not have discharge paperwork. Pt frowns and returns back to his bed.
--- NOTE | 2020-12-08 05:31 | NUR ---
Pt up to use the bathroom continues to pace after using the bathroom. Declines offers of medication
--- NOTE | 2020-12-08 05:47 | NUR ---
pt is refusing vitals this morning
--- NOTE | 2020-12-08 06:33 | NUR ---
Patient up to nurses station asking RN to give him a ride home tomorrow when his hold is up. RN explained that if he is discharged we can give him a taxi to go home. Patient is on his second 5150 which expires tomorrow morning. RN read patient the hold. Patient is anxious. Continue to monitor.
--- NOTE | 2020-12-08 07:06 | NUR ---
Patient continues to pace. Continue to monitor.
[2020-12-08] MEDS: OLANZapine 5mg rapidly disint. tablet PO SCH ×2 (08:00→20:00)
--- NOTE | 2020-12-08 08:15 | NUR ---
Patient's breakfast tray at side. Has not touched the food. Continue to monitor.
--- NOTE | 2020-12-08 08:30 | NUR ---
Patient refuses his medication, refuses to eat and will not concede that he needs help. Patient asked and RN read patient his 5150 information. Patient is articulate and defiant. Patient is sarcastic with RN and [facility], patient called him a liar. RN explained to Adrian that she read him the info on his 5150. Adrian advised patient that he would speak to him shortly.
--- NOTE | 2020-12-08 09:05 | NUR ---
Patient and Adrian speaking in pt's room. Patient calling Adrian a liar and Adrian explains to patient that if he starts eating and takes his medication he can go home. Patient states he is not longer with his fiance and he was made for the streets. Continue to monitor.
--- NOTE | 2020-12-08 10:08 | NUR ---
Patient heard on the phone talking to his kids and sounded appropriate. Continue to monitor.
--- NOTE | 2020-12-08 11:28 | NUR ---
Patient on right side and appears to be sleeping. Continue to monitor.
--- NOTE | 2020-12-08 12:13 | NUR ---
Patient pacing in front of nurses station. No distress observed. Continue to monitor.
--- NOTE | 2020-12-08 13:24 | NUR ---
Patient ate all his lunch! No distress reported at this time. Continue to monitor.
--- NOTE | 2020-12-08 15:01 | NUR ---
Patient allowed redraw of blood. Patient states he feels he needs to get things going. Continue to monsitor.
[2020-12-08 15:49] LABS: BASOPHILS # (AUTO) 0.1 X10'3 (0-0.2); BASOPHILS % (AUTO) 0.5 % (0-1); EOSINOPHILS # (AUTO) 0.1 X10'3 (0-0.9); EOSINOPHILS % (AUTO) 0.9 % (0-6); HEMATOCRIT 52.8 % (42.0-52.0); HEMOGLOBIN 17.7 g/dl (14.0-17.9); LYMPHOCYTES # (AUTO) 2.4 X10'3 (1.1-4.8); LYMPHOCYTES % (AUTO) 22.5 % (21-51); MEAN CORPUSCULAR HEMOGLOBIN 31.9 PG (27.0-31.0); MEAN CORPUSCULAR HGB CONC 33.6 g/dL (33.0-36.5); MEAN PLATELET VOLUME 9.9 FL (7.4-10.4); MONOCYTES % (AUTO) 9.6 % (2-12); NEUTROPHILS # (AUTO) 7.1 X10'3 (1.8-7.7); NEUTROPHILS % (AUTO) 66.5 % (42-75); PLATELET COUNT 230 X10'3 (140-440); RED BLOOD COUNT 5.56 X10'6 (4.70-6.10); RED CELL DISTRIBUTION WIDTH 13.5 % (11.5-14.5); WHITE BLOOD COUNT 10.7 X10'3 (4.5-11.0)
[2020-12-08 15:57] LABS: ALANINE AMINOTRANSFERASE 38 U/L (12-78); ALBUMIN 4.7 G/DL (3.4-5.0); ALBUMIN/GLOBULIN RATIO 1.4 (1.1-1.5); ALKALINE PHOSPHATASE 48 IU/L (46-116); ANION GAP 9 (8-16); ASPARTATE AMINO TRANSFERASE 32 U/L (10-37); BILIRUBIN,TOTAL 1.4 MG/DL (0.1-1.0); BLOOD UREA NITROGEN 11 MG/DL (7-18); CALCIUM 9.2 MG/DL (8.5-10.1); CHLORIDE 99 MMOL/L (99-107); CREATININE 0.92 MG/DL (0.60-1.10); GLUCOSE 125 MG/DL (70-104); POTASSIUM 3.8 MMOL/L (3.5-5.1); SODIUM 139 MMOL/L (135-145); TOTAL CARBON DIOXIDE 31.5 MMOL/L (24-32); eGFR > 90 ML/MIN
--- NOTE | 2020-12-08 17:00 | NUR ---
Mother visiting with patient and brought pt some clothes and books. Patient is acting appropriately.
--- NOTE | 2020-12-08 18:52 | NUR ---
Pt is calm, cooperative. Denies s/i, h/i, a/vh. Pt states he is doing well. Pt is eating dinner meal. P/c to Nikki at [facility] office and she is waiting to hear back from Gabriel at [facility] regarding placement. Pts S/O Rossy called stating she is fearful he is going to be released tommorow and wants to know if someone will call if he is released so she can get her locks changed and get her child out of school. Explained to Rossy that [facility] is aware she would like to be notified.
--- NOTE | 2020-12-08 20:58 | NUR ---
pt spoke w/family on the phone. Pt refusing meds stating he never got to talk to Dr. Diaz since he has been here. Pt has talked to Shamar Dejesus this visit. Pt is sitting on the floor coloring.
--- NOTE | 2020-12-08 21:13 | NUR ---
Pt is agitated, refusing meds and wants to talk about meds, but is not able to say what he wants to talk about. Pt states "I dont have a , start the narrative over!" Asked patient to tell me why he is here and he laughs and walks away. Asked patient about home meds to attempt to discuss meds with him and he walks away. Continuing to pace and attempting to socialize with other patients
--- NOTE | 2020-12-08 22:20 | NUR ---
pt sitting in bed quietly reading a book
--- NOTE | 2020-12-08 23:04 | NUR ---
Patient pacing back and forth, was requested to stay away from females rooms, he makes a joke I was just wondering what the blue light special is? Pt is resistive to redirection, continues to push boundaries walking to just the edge of boundary given then looking to see if we are watching him.
[2020-12-09] MEDS: LORazepam 2 mg/ml vial IM PRN (01:49)
[2020-12-09] MEDS: haloperidol lactate 5mg/ml inj IM PRN (01:50)
[2020-12-09] MEDS: diphenhydrAMINE 50 mg/ml inj IM PRN (01:50)
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
--- NOTE | 2020-12-09 03:27 | NUR ---
Pt got up walking around and was told to return to his bed because he was falling asleep, pt walked over to his bed and peed on the floor and refused to get in bed. Pt was assisted back to bed.
--- NOTE | 2020-12-09 05:00 | NUR ---
Pt in bed sleeping rr even and unlabored no s/s distress.
--- NOTE | 2020-12-09 06:30 | NUR ---
Patient sleeping supine. No distress observed. Continue to monitor.
[2020-12-09] MEDS: OLANZapine 5mg rapidly disint. tablet PO SCH ×4 (08:00→22:48)
--- NOTE | 2020-12-09 08:15 | NUR ---
Patient eating breakfast and drinking his coffee. No distress observed. Continue to monitor.
--- NOTE | 2020-12-09 09:09 | NUR ---
[facility], Rekha, re-evaluating patient. Patient started yelling loudly "I can't stay here until you make a fucking decision!" Rekha left the area and advised RN would get an update shortly.
[2020-12-09] MEDS ORDERED: haloperidol lactate 5mg/ml inj IM ONE (10:00)
[2020-12-09] MEDS ORDERED: diphenhydrAMINE 50 mg/ml inj IM ONE (10:00)
[2020-12-09] MEDS ORDERED: LORazepam 2 mg/ml vial IM ONE (10:00)
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
--- NOTE | 2020-12-09 10:49 | NUR ---
Patient sleeping supine with head of bed elevated. Continue to monitor.
--- NOTE | 2020-12-09 12:05 | NUR ---
Patient ambulatory to BR, steady gait. No distress observed. Continue to monitor.
--- NOTE | 2020-12-09 13:05 | NUR ---
Patient sleeping and did not want to eat when RN awoke patient. Tray is at bedside. Patient had refused a second Covid test. RN will try again later. Continue to monitor.
--- NOTE | 2020-12-09 14:47 | NUR ---
Patient sleeping on left side. No distress observed. Continue to monitor.
--- NOTE | 2020-12-09 16:03 | NUR ---
Patient is reading a book in bed. No distress observed. Continue to monitor.
--- NOTE | 2020-12-09 19:01 | NUR ---
The patient has been up and wandering around the unit. He is watchful and appears paranoid. He is clearly has underlying agitation. He is not able to demonstrate any insight. He denies A/V hallucinations. He as asked if he was suicidal and he stated "of course" but he denies plan or intent.
--- NOTE | 2020-12-09 21:05 | NUR ---
Pt is up pacing.
--- NOTE | 2020-12-09 22:58 | NUR ---
The patient finally agreed to take the zyprexa zydis after given a printout and verbal education.
--- NOTE | 2020-12-10 02:06 | NUR ---
THe patient is currently resting on his bed
--- NOTE | 2020-12-10 03:25 | NUR ---
THe patient appears to be sleeping
--- NOTE | 2020-12-10 04:44 | NUR ---
The patient appears to be sleeping
--- NOTE | 2020-12-10 06:30 | NUR ---
Received Pt in bed sleeping w/o distress.
[2020-12-10] MEDS: OLANZapine 5mg rapidly disint. tablet PO SCH ×2 (08:00→20:00)
--- NOTE | 2020-12-10 09:00 | NUR ---
Pt awake and refused AM Zyprexa. Pt ate breakfast and paced halls a bit. Pt argumentative and splits hairs in conversation to get reaction from staff.
--- NOTE | 2020-12-10 11:00 | NUR ---
Pt pacing around unit. Cooperative and talking about sports with staff. Pt made and received several phone calls to family.
--- NOTE | 2020-12-10 13:45 | NUR ---
Pt ate lunch and is reading a book in bed.
--- NOTE | 2020-12-10 16:24 | NUR ---
Pt pacing unit. Pt states "I want them to come talk to me". Pt was refering to [facility] doctors. Pt began moving curtains and limits set.
--- NOTE | 2020-12-10 17:36 | NUR ---
Pt in bed reading a book.
--- NOTE | 2020-12-10 18:20 | NUR ---
Assumed care of patient. Pt is in bed napping. Attempted to wake him up for dinner but he continues to sleep. RR even and unlabored.
--- NOTE | 2020-12-10 19:05 | NUR ---
Pt awake, used the bathroom and is eating dinner.
--- NOTE | 2020-12-10 19:28 | NUR ---
Pt is up pacing, made phone call to family
--- NOTE | 2020-12-10 20:51 | NUR ---
Pts mother called and spoke with patient. Pts s/o Rossy called and asked how he was doing stating he sounded better on the phone but then later said strange things to her. Pts zyprexa dose was increased tonight, pt agreed to take the zyprexa but then when presented with the medication he looked in the cup and said "Nope not gonna take it." and handed the cup back to me. Attempted to encourage pt compliance with treatment but he states he is "fine." "It's ok if I just stay here, none of this matters." Pt appears depressed tonight. He is laying in bed resting with his eyes closed.
--- NOTE | 2020-12-10 23:15 | NUR ---
pt is asleep
--- NOTE | 2020-12-11 01:53 | NUR ---
Pt is awake asking for clean scrubs, changed into scrubs and went back to sleep.
--- NOTE | 2020-12-11 05:01 | NUR ---
Pt is asleep
--- NOTE | 2020-12-11 06:37 | NUR ---
Assumed care of patient, pt. is awake and reading at this time, rr even and unlabored. No s/s of distress noted.
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
[2020-12-11] MEDS: OLANZapine 5mg rapidly disint. tablet PO SCH ×2 (08:00→20:00)
--- NOTE | 2020-12-11 08:23 | NUR ---
Pt. sitting at bedside eating breakfast at this time
--- NOTE | 2020-12-11 09:30 | NUR ---
Pt. sitting in bed reading at this time, no s/s of distress noted.
--- NOTE | 2020-12-11 10:28 | NUR ---
Pt. continues to lay in bed reading at this time, rr even and unlabored.
--- NOTE | 2020-12-11 11:34 | NUR ---
Pt. up pacing the unit at this time, will continue to monitor closely.
--- NOTE | 2020-12-11 12:20 | NUR ---
Pt. continues to pace, talking on the telephone at this time.
--- NOTE | 2020-12-11 13:43 | NUR ---
Pt. asked to go to bed by male nurse while this chart writer was on break, pt. complied however stated, "Fuck you!" He was provided education that this behavior is unacceptable and reported some understanding. Will continue to monitor.
--- NOTE | 2020-12-11 14:35 | NUR ---
Pt. continues to pace at this time, he interacts appropriately with staff at intervals.
--- NOTE | 2020-12-11 15:37 | NUR ---
Pt. continues to wander, is intrusive at times going into other patient's rooms, but is redirectable.
--- NOTE | 2020-12-11 17:41 | NUR ---
Pt. laying in bed at this time, no s/s of distress noted.
--- NOTE | 2020-12-11 20:00 | NUR ---
Pt is walking the unit, pacing. pt is friendly but guarded, occasional delusional statement. no needs identified
--- NOTE | 2020-12-11 22:55 | NUR ---
pt is still up walking, given rodrick crackers for snack.
--- NOTE | 2020-12-12 01:14 | NUR ---
pt is restless, pacing, will not take meds
[2020-12-12] MEDS: LORazepam 2 mg/ml vial IM PRN (01:52)
[2020-12-12] MEDS: haloperidol lactate 5mg/ml inj IM PRN (01:52)
[2020-12-12] MEDS: diphenhydrAMINE 50 mg/ml inj IM PRN (01:52)
--- NOTE | 2020-12-12 01:59 | NUR ---
Pt was becoming agitated, screaming, attempting to elope. security called to escort pt back to bed. pt given IM benadryl, haldol, ativan. pt is now angry, making delusional statements.
--- NOTE | 2020-12-12 02:27 | NUR ---
pt is lying in bed now, head under covers
--- NOTE | 2020-12-12 05:21 | NUR ---
pt is sleeping, rr unlabored.
[2020-12-12] MEDS: OLANZapine 5mg rapidly disint. tablet PO SCH ×3 (08:00→20:07)
--- NOTE | 2020-12-12 13:39 | NUR ---
Pt was watching the tv when security arrived and was asked to turn down the tv. It sounded as if pt turned up the volume. Security took controls away from the pt and turned down the volume. Remote now at nurses station. Pt did remain calm.
--- NOTE | 2020-12-12 18:45 | NUR ---
patient talked to ba palma on the phone and his children. very calm and coherent.
--- NOTE | 2020-12-12 20:33 | NUR ---
patient currently doing push ups and situps on the floor.
--- NOTE | 2020-12-12 23:04 | NUR ---
patient laid down for about a hour and is up again pacing floor asking if he can watch tv. Explained to patient the policies. He, for now, states that he understands.
--- NOTE | 2020-12-12 23:28 | NUR ---
patient became agitated because he is "bored", patient allowed to watch tv so he can fall asleep, vol on low.
--- NOTE | 2020-12-13 00:31 | NUR ---
patient ate a whole turkey sandwich and two cups of crystal light.
--- NOTE | 2020-12-13 00:43 | NUR ---
patient finally is laying in bed with eyes closed.
[2020-12-13] MEDS ORDERED: diphenhydrAMINE 50 mg/ml inj IM ONE (02:00)
[2020-12-13] MEDS ORDERED: haloperidol lactate 5mg/ml inj IM ONE (02:00)
[2020-12-13] MEDS ORDERED: LORazepam 2 mg/ml vial IM ONE (02:00)
--- NOTE | 2020-12-13 02:16 | NUR ---
PATIENT SCREAMING, REFUSING VS. WILL CONT TO MONITOR AND ATTEMPT VS.
--- NOTE | 2020-12-13 02:18 | NUR ---
PATIENT KICKING AND THRASHING IN BED, SECURITY AT BEDSIDE. BED IS BROKEN NOW.
--- NOTE | 2020-12-13 02:25 | NUR ---
PER SECURITY, THEY CANNOT DO ANYTHING BEYOND WHAT HAS BEEN DONE. IF PATIENT KEEPS TRYING TO BREAK THE BED, THEY WILL CALL THE POLICE FOR DESTRUCTION OF PROPERTY.
--- NOTE | 2020-12-13 02:28 | NUR ---
PATIENT HOWLING WAKING UP OTHER PATIENTS. REPEATEDLY ASKED PATIENT TO BE QUIET SINCE OTHER PATIENTS ARE TRYING TO REST.
--- NOTE | 2020-12-13 03:43 | NUR ---
Engineering asssed patient bed, and patient did indeed break it. engineering to call bed company to come and assess the damage and cost.
--- NOTE | 2020-12-13 05:16 | NUR ---
patient awake and talking and yelling again, refusing vs.
--- NOTE | 2020-12-13 05:30 | NUR ---
patient kicking bed again, screaming," give me something to fucking pee in". Urinal provided and patient decided to urinate on floor. Not the first time this has happened per previous rn noted. Refusing to be touched and is still having outburts.
--- NOTE | 2020-12-13 06:00 | NUR ---
patient is still refusing vs. States, " don't touch me."
--- NOTE | 2020-12-13 06:51 | NUR ---
Reasssing pt's behavior to release restraints. Pt's right arm and left leg unrestrained. Pt states "I will leave when this is all done." Will continue to monitor behavior.
--- NOTE | 2020-12-13 07:05 | NUR ---
Pt resting comfortably on right side, respirations even and unlabored.
--- NOTE | 2020-12-13 08:05 | NUR ---
Pt was released from restraints. Behavior expectations were reviewed with patient. Pt verbalized understanding. Pt is said "thank you" after release. Pt is now pacing unit, calmly and has used the bathroom.
[2020-12-13] MEDS: OLANZapine 5mg rapidly disint. tablet PO SCH ×3 (08:25→20:21)
--- NOTE | 2020-12-13 08:34 | NUR ---
Administered pt's 0800 Zyprexa zydis. Pt remained at beside after administration. Pt stated "What do I get out of this?" "Do I get to go home?" Milk Truck Driver explained that his behavior is making it difficult to place him.
--- NOTE | 2020-12-13 08:47 | NUR ---
Pt up at nurses station questioning why he is here. "I am supposed to meet my family at an event today." Can you get me a taxi?" Pt asks "Do you like your job" "Do you like that you have to fake what you say?" Pt was asked to go back to his room, pt stated "this is my room." Pt was then asked to go back to his bed. Pt went back to his room, then asked to use the phone.
--- NOTE | 2020-12-13 09:08 | NUR ---
Pt trying to call "Rossy" number not going through. "She will call eventually, but you guys are fucking it up." Line Therapist called number from main phone and transferred to pt phone. Pt unable to get through to mom. Pt told policy writer sales "you can fuck off and ." Will continue to monitor.
--- NOTE | 2020-12-13 09:15 | NUR ---
Security was called for a walk through as pt was becoming difficult to redirect. Pt's phone calls (Rossy and his mother) weren't going through as numbers were disconnected. Pt continued to state "fuck off and " then would laugh. Pt did return to his area when security arrived.
--- NOTE | 2020-12-13 11:20 | NUR ---
Pt resting comfortably, respirations even and unlabored.
--- NOTE | 2020-12-13 13:25 | NUR ---
Pt pacing wil, tried to call his girlfriend again "These phone still aren't working!" Pt asked to watch T.V, check writer salesperson explained r/t his behavior the T.V wasn't going on.
--- NOTE | 2020-12-13 14:20 | NUR ---
Pt pacing unit asking "when is my hold up?" Pt again asks repeatedly. Pt is at nurses station leaning on counter. Pt is asked to go to his bed. Pt yells "If I dont' get what I want everyone will wake up!" "All these zombies sleeping all day, I don't give a fuck!" Pt laid in his bed yelling out the Pledge of Allegiance. Pt wouldn't calm down security was called for a walk through in which the pt laid in his bed and read his book.
--- NOTE | 2020-12-13 15:15 | NUR ---
Pt resting in bed, appears to be sleeping. Pt is quite.
--- NOTE | 2020-12-13 15:45 | NUR ---
Pt awake pacing [place] asking about discharge date. "You can't fucking keep me here." Pt being disruptive going to sink and turning on water. Pt asked to watch T.V and was told no, pt poured his water out from nurses station to his room. Pt refused to clean up, then laid in his bed. Pt loundly called underwriter mortgage loan's name "can I have a turkey sandwich!" Addendum: 12/13/20 at 1555 by BRIANNE Pt does not respond to therapeutic conversation. Pt is behavioral and disruptive "I don't give a fuck!"
--- NOTE | 2020-12-13 16:10 | NUR ---
Pt was asked to clean up the water he had deliberately spilled, towels were laid out. Pt wiped up the floor then kicked the towels towards the exit. "Get me a turkey sandwich bitch." Pt went to his bed, laughing and laid down.
--- NOTE | 2020-12-13 18:52 | NUR ---
Pt is pacing the floor, listening to nurses talk about weekend, responds with "you should quit your job and be homeless, I'll take care of you, I'll show you the ropes...a little bit." Pt is attempting to call his girlfriend Rossy and is frustrated with not being able to connect with her.
--- NOTE | 2020-12-13 20:23 | NUR ---
Pt napped for some time and now he's up pacing, he stopped and nurses desk and asked to take his zyprexa and took it.
--- NOTE | 2020-12-13 21:54 | NUR ---
pt sitting quietly watching tv.
--- NOTE | 2020-12-13 23:11 | NUR ---
Pt in bed sleeping
--- NOTE | 2020-12-14 01:15 | NUR ---
pt awake pacing and coloring. Wrote on paper "calm like a bomb"
--- NOTE | 2020-12-14 03:51 | NUR ---
pt laying on his right side sleeping rr even and unlabored
--- NOTE | 2020-12-14 07:00 | NUR ---
Pt lying in bed awake, passing gas then laughing. Pt is calm.
--- NOTE | 2020-12-14 08:37 | NUR ---
Pt's girlfriend Rossy called inquiring about pt's discharge status. Ax[employer] Rug Setter reiterated the note from [facility] that pt may be discharged sometime this week, pending reevaluation. Pt is not voicing S/I, H/I and is eating and drinking. Rossy states she doesn't feel safe around pt and is temporarily out of the area with her children. Rossy states she does not have a restraining order on pt as of yet, but hopes to being process this week. Reenforced to her that she will be contacted when pt is discharged.
[2020-12-14] MEDS ORDERED: OLANZapine 5mg rapidly disint. tablet PO ONE (08:50)
--- NOTE | 2020-12-14 08:51 | NUR ---
PUT IN ONCE ORDER FOR ZYPREXA ZYDIS PT'S 0800 WAS CLICKED IN ERROR LAST NIGHT AND NOT ADMINISTERED. THIS DOSE IS PT'S REGULAR SCHEDULED DOSE.
--- NOTE | 2020-12-14 09:04 | NUR ---
Pt on phone talking with Rossy and his son. Conversation is appropriate.
--- NOTE | 2020-12-14 09:24 | NUR ---
Pt on phone with his mother Chelsea stating "I am fine, I don't need help." Pt is appropriate.
--- NOTE | 2020-12-14 11:32 | NUR ---
Pt in restroom. Pt asked to have his girlfriend Rossy and his mother to be removed from his emergency contact. Pt pacing unit drinking his water.
--- NOTE | 2020-12-14 13:33 | NUR ---
Pt ate 100% of lunch. Pt has no behaviors and is lying in his bed with eyes closed.
--- NOTE | 2020-12-14 15:52 | NUR ---
Pt watching T.V in his area. Pt has been pacing most of the afternoon without any disruptive behaviors
--- NOTE | 2020-12-14 19:37 | NUR ---
pt is pacing, behaving appropriately. had conversation with his gf, which seemed appropriate, although pt was telling gf that "staff are minsinforming her."
[2020-12-14] MEDS: OLANZapine 5mg rapidly disint. tablet PO SCH (20:10)
--- NOTE | 2020-12-14 22:59 | NUR ---
pt is sleeping, no s/s of distress noted.
--- NOTE | 2020-12-15 02:00 | NUR ---
pt continues to sleep, rr unlabored.
--- NOTE | 2020-12-15 03:35 | NUR ---
pt is sleeping, no s/s of distress noted.
[2020-12-15 05:51] VITALS: BP 140/90
--- NOTE | 2020-12-15 06:30 | NUR ---
Recieved pt awake pacing the floors asking for coffee. Pt is calm and cooperative. Appears to be in good health.
[2020-12-15] MEDS: OLANZapine 5mg rapidly disint. tablet PO SCH (07:23)
--- NOTE | 2020-12-15 09:00 | NUR ---
Pt has not eaten or does not drink without being prompted. Offered food. Pt declined. Handed his pitcher of water to him encouraged him to drink. Pt took 2 sips and handed it back to this nurse.
--- NOTE | 2020-12-15 10:25 | NUR ---
Pt no longer meets criteria and is discharged. He was given information to the [facility] as he is no longer welcomed in his home with his fiance and children. All his personal belongings were returned and signed off. Pt discharge information read to him before signing. Pt will not tell this nurse what his plans are after he leaves. Notified fiance of his discharge.
--- NOTE | 2020-12-15 10:32 | NUR ---
PT'S FLAVIA MENSAH'S PHONE NUMBER IS: [phone]
== END 2020-12-15 10:25 | disposition home or self-care (01) ==
LOC: ER 22:00
DX: T65.92XA Toxic effect of unspecified substance, intentional self-harm, initial encounter (principal); Z20.822 Contact with and (suspected) exposure to COVID-19; F31.9 Bipolar disorder, unspecified; F20.9 Schizophrenia, unspecified; R06.02 Shortness of breath; Z79.899 Other long term (current) drug therapy; Y92.89 Other specified places as the place of occurrence of the external cause
CPT/HCPCS: 36415; 71045; 80048; 80053; 80305; 80320; 80329; 81003; 82550; 84443; 85025; 87635; 93005; 96361; 96372; 96374; 99285; C9803; J2060; J7030